=== PATIENT | male | born 1960 | race Caucasian/White ===

== ENCOUNTER → 2017-09-20 10:20 | Outpatient (POV) | payer MEDICARE, BC, SELFPAY | PROVIDERS: Family Provider Family Medicine; PCP Family Medicine; Visit Provider Nurse Practitioner Acute Care | DX: Z00.00 Encounter for general adult medical examination without abnormal findings (principal) ==

== ENCOUNTER → 2017-11-30 11:08 | Outpatient (CLI) | payer MEDICARE, BC, SELFPAY ==
--- NOTE | 2017-11-30 | XR_ITS ---
XR knee LT 3V HISTORY: ITS.REASON: LT KNEE PAIN ORDERING PHYSICIAN: Anton Betts MD PATIENT AGE: 57 years FINDINGS: There are moderate osteoarthritic changes of the medial compartment with mild osteoarthritis of the lateral compartment and patellofemoral joint. No fracture or dislocation. No lytic or blastic change. IMPRESSION: Moderate osteoarthritis of the left knee
--- NOTE | 2017-11-30 | XR_ITS ---
XR knee RT 3V HISTORY: Right knee pain ITS.REASON: RT KNEE PAIN ORDERING PHYSICIAN: Anton Betts MD PATIENT AGE: 57 years COMPARISON: FINDINGS: No fracture or dislocation. No lytic or blastic change. Normal mineralization. There is slight decrease in the joint space medially which may be due to mild osteoarthritic change. No other significant anomalies are evident. IMPRESSION: Mild osteoarthritic change medial compartment
== END ==
PROVIDERS: PCP Family Medicine; Visit Provider Family Medicine
DX: M25.561 Pain in right knee (principal); M25.562 Pain in left knee
CPT/HCPCS: 73562

== ENCOUNTER → 2017-12-23 11:54 | Outpatient (CLI) | payer MEDICARE, BC, SELFPAY ==
[2017-12-23 12:30] LABS: Basophils % 0.4 % (0.1-2.0); Eosinophils # 0.2 K/mm3 (0.0-0.4); Eosinophils % 2.4 % (0.1-12.0); Hematocrit 45.6 % (42.0-52.0); Hemoglobin 14.6 g/dL (14.1-18.0); Lymphocytes # 2.2 K/mm3 (0.7-4.5); Lymphocytes % 30.6 K/mm3 (10-50); Mean Corpuscular Hemoglobin 29.1 pg (27.0-31.2); Mean Corpuscular Volume 91.1 fl (80-94); Mean Platelet Volume 8.5 fl (7.4-10.4); Monocytes # 0.5 K/mm3 (0.1-1.0); Monocytes % 7.3 % (1.7-9.3); Neutrophils # 4.3 K/mm3 (1.8-7.8); Neutrophils % 59.3 % (37.0-80.0); Platelet Count 176 K/mm3 (142-424); Red Blood Count 5.01 M/mm3 (4.60-6.20); Red Cell Distribution Width 12.6 % (11.5-17.5); White Blood Count 7.3 K/mm3 (4.8-10.8)
[2017-12-23 13:21] LABS: Anion Gap 13.5 mEq/L (5-15); Blood Urea Nitrogen 17 mg/dL (7-18); Carbon Dioxide 27 mmol/L (21.0-32.0); Chloride 103 mmol/L (98-107); Estimated Glomerular Filt Rate 63 ml/min (>60); GFR (African American) 76 ML/MIN (>60); Glucose 100 mg/dL (74-106); Potassium 4.5 mmoL/L (3.5-5.1); Prostate Specific Ag, Diagnost 1.65 ng/mL (0.0-4.0); Sodium 139 mmol/L (136-145)
== END ==
PROVIDERS: Visit Provider Urology
DX: N40.1 Benign prostatic hyperplasia with lower urinary tract symptoms (principal); R39.89 Other symptoms and signs involving the genitourinary system
CPT/HCPCS: 36415; 80048; 84153; 85025

== ENCOUNTER → 2018-12-06 10:41 | Outpatient (CLI) | payer MEDICARE, BC, SELFPAY ==
--- NOTE | 2018-12-06 10:52 | XR_ITS ---
EXAM: XR lumbar spine min 4V HISTORY: ITS.REASON: RT SIDE LOW BACK PAIN ORDERING PHYSICIAN: Anton Betts MD PATIENT AGE: 58 years COMPARISON: None FINDINGS: Degenerative disc disease T10-T11 and T11-T12 T12-L1 and L1-L2 L2-L3. There is mild wedging of T12 and L1 which appears chronic. Normal alignment. Generalized vascular calcification. Facet arthritic change at all 5 S1. IMPRESSION: Degenerative changes, no acute finding
== END ==
PROVIDERS: PCP Family Medicine; Visit Provider Family Medicine
DX: M54.41 Lumbago with sciatica, right side (principal)
CPT/HCPCS: 72110

== ENCOUNTER → 2019-02-21 08:55 | Outpatient (CLI) | payer MEDICARE, OTHER, SELFPAY ==
--- NOTE | 2019-02-21 09:07 | MR_ITS ---
MR lumbar spine wo con, MR 3-d myelogram/MRCP HISTORY: PT states low back pain, RT leg numbness and falling. Symptoms X 8 months and keeps getting worse. ITS.REASON: ACUTE RIGHT-SIDED LOW BACK PAIN W/RIGHT-SIDED SCIATICA, DDD ORDERING PHYSICIAN: Anton Betts MD PATIENT AGE: 58 years Comparison: X-RAY 12/06/18 TECHNIQUE: Standard multiplanar multiecho sequences are performed without contrast. 3-D MIP and myelographic images are also rendered and reviewed FINDINGS: There is normal alignment. The spinal cord and is at the T12-L1 level. T11-T12: There is degenerative disc disease at this level with mild bulging disc along with moderate to severe facet and ligamentum flavum hypertrophic change. There is resultant canal stenosis with impingement upon the spinal cord compression of the cord. There is slight increased T2 signal of the cord at this level suggesting underlying gliotic change or edema. The canal measures 8 mm. There is bilateral severe foraminal and lateral recess narrowing. T12-L1: Degenerative disc disease with mild facet and ligamentum flavum hypertrophy T12-L1: Degenerative disc disease with mild bulging disc. L1-L2: Mild facet and ligamentum flavum hypertrophic change. L2-L3: Bulging disc with facet and ligamentum flavum hypertrophy. There is moderate left-sided foraminal narrowing and mild bilateral lateral recess narrowing. L3-L4: Bulging disc with facet and ligamentum flavum hypertrophy with moderate bilateral lateral recess and foraminal narrowing. L4-L5: Bulging disc eccentric toward the left lung with moderate facet and ligamentum flavum hypertrophy with moderate to severe bilateral foraminal narrowing greater on the left along with moderate left lateral recess narrowing and mild right lateral recess narrowing. Borderline canal stenosis at this level. L5-S1: Mild concentric bulging disc along with facet and ligamentum flavum hypertrophy with moderate to severe bilateral foraminal narrowing. No extruded herniated disc is evident. IMPRESSION: 1. Abnormal MRI of the lumbar spine with multilevel lumbar spondylosis with bulging disc, degenerative disc disease, facet and ligamentum flavum hypertrophy with varying degrees of lateral recess and foraminal narrowing. PLEASE SEE ABOVE FOR DETAILED DESCRIPTION AT EACH LEVEL. 2. At T11-T12, there is degenerative disc disease with bulging disc along with moderate to severe facet and ligamentum flavum hypertrophy with resultant canal stenosis and spinal cord impingement with some increased T2 signal of the cord at this level suggesting underlying gliotic change or edema. Severe bilateral lateral recess and foraminal narrowing is also present at this level.
== END ==
PROVIDERS: PCP Family Medicine; Visit Provider Family Medicine
DX: M54.41 Lumbago with sciatica, right side (principal); M51.36 Other intervertebral disc degeneration, lumbar region; M47.816 Spondylosis without myelopathy or radiculopathy, lumbar region
CPT/HCPCS: 72148; 76376

== ENCOUNTER → 2019-04-24 11:40 | Outpatient (POV) | payer MEDICARE, BC, SELFPAY ==
[2019-04-24 11:48] VITALS: BP 173/95; PULSE 81; RESP 18; O2SAT 98; BMI 28.2
--- NOTE | 2019-04-25 10:23 | HMH.PMCON ---
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 Category: Medical Code(s): M46.00 - Spinal enthesopathy, site unspecified (2) Spinal stenosis Current visit: Yes Status: Chronic Qualifiers: Neurogenic claudication status: with neurogenic claudication Category: Medical Code(s): M48.00 - Spinal stenosis, site unspecified (3) Degenerative disc disease Current visit: Yes Status: Chronic Qualifiers: Spinal region: lumbar Qualified Code(s): M51.36 - Other intervertebral disc degeneration, lumbar region Category: Medical - Assessment and plan all Dx Assessment and Plan for all problems:: We will plan an L4-L5 lumbar epidural steroid injection with half of the steroid due to the state of his kidney and I epidurogram for potential mild procedure. Patient's been instructed to call the office if he has any issues prior to his next appointment. He is not on any anticoagulation therapy. Patient is continuing a home stretching program. Dr. Vegas has reviewed this note and agrees with this plan of care. This note was dictated using voice recognition software and may contain errors or omissions HPI - Data of Consult Consult date: 04/24/19 Requesting Physician: Theresa Christina APRN Primary Care Provider: Anton Betts MD - Consult Narrative Reason for consult: Back pain, leg pain History of present illness: Mr. Regalado is a 59 year old male who presents today for consultation in regards to his low back pain leg pain. Patient rates his pain a 7 out of 10. Patient's pain is worse when he is standing and walking. Patient is unable to do so for long periods of time. Patient does have MRI showing ligamentum flavum hypertrophy and spinal stenosis. Patient and I discussed epidural injections. Due to the fact that he is only has one kidney we will potentially taper the steroids so that he does not have a full dose. We also briefly spoke about the mild procedure. CC: Theresa Christina APRN [facility] History I have reviewed the patient's past medical history: Yes Medical History: Reports:: Asthma, Gastroesophageal Reflux Disease(GERD), Hypertension, Lung Disease, Ulcer Denies:: Diabetes Mellitus Type 1, Diabetes Mellitus Type 2, Internal Pacemaker, Seizures *Have you ever received a pneumonia vaccine?: Yes *Have you received a flu vaccine this season?: Yes Other Medical History: Reports: Arthritis Other Surgeries: Yes: Other (donated left kidney). No: Pacemaker Amputation: No Fractures: No - *Social History Smoking Status: Current every day smoker Tobacco Type: cigarettes # Packs/Day (cigarettes): 2 Alcohol Intake: current Alcohol Intake Frequency:: a few times a week Substance Use Type: denies use *Occupational Status:: other Housing: house Household Members: other *Travel in the last 8 weeks: None Family Hx:: No significant family history Review of Systems - Review of Systems ROS General: no recent weight change, no fever, no sleep disturbances Respiratory: no cough, no shortness of air, no recurring pulmonary infections Cardiovascular/Peripheral Vascular: No chest pain, No palpitations, no edema, no shortness of breath. Gastrointestinal: no incontinence, normal bowel movements reported Genitourinary: no incontinence Musculoskeletal: Back pain, leg pain Psychiatric: normal mood/ affect Neurological: [denies weakness in extremities], [denies balance issues] Meds Home Medications Medication Instructions Recorded Confirmed Type Albuterol Sulfate [Albuterol HFA 1 - 2 puffs IH Q4-6H PRN 11/02/17 07/21/18 History Inhaler] Tamsulosin HCl [Flomax] 0.4 mg PO DAILY 11/02/17 07/21/18 History albuterol sulfate HFA 90 2 puff INHALATION Q6H PRN 12/23/17 07/21/18 History mcg/actuation aerosol inhaler aspirin 81 mg tablet,delayed 81 mg PO ONCE 12/23/17 07/21/18 History release cholecalciferol (vitamin D3) 1,000 1,00
--- NOTE | 2019-04-25 10:29 | P.CONS_ITS ---
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 Category: Medical Code(s): M46.00 - Spinal enthesopathy, site unspecified (2) Spinal stenosis Current visit: Yes Status: Chronic Qualifiers: Neurogenic claudication status: with neurogenic claudication Category: Medical Code(s): M48.00 - Spinal stenosis, site unspecified (3) Degenerative disc disease Current visit: Yes Status: Chronic Qualifiers: Spinal region: lumbar Qualified Code(s): M51.36 - Other intervertebral disc degeneration, lumbar region Category: Medical - Assessment and plan all Dx Assessment and Plan for all problems:: We will plan an L4-L5 lumbar epidural steroid injection with half of the steroid due to the state of his kidney and I epidurogram for potential mild procedure. Patient's been instructed to call the office if he has any issues prior to his next appointment. He is not on any anticoagulation therapy. Patient is continuing a home stretching program. Dr. Vegas has reviewed this note and agrees with this plan of care. This note was dictated using voice recognition software and may contain errors or omissions HPI - Data of Consult Consult date: 04/24/19 Requesting Physician: Theresa Christina APRN Primary Care Provider: Anton Betts MD - Consult Narrative Reason for consult: Back pain, leg pain History of present illness: Mr. Regalado is a 59 year old male who presents today for consultation in regards to his low back pain leg pain. Patient rates his pain a 7 out of 10. Patient's pain is worse when he is standing and walking. Patient is unable to do so for long periods of time. Patient does have MRI showing ligamentum flavum hypertrophy and spinal stenosis. Patient and I discussed epidural injections. Due to the fact that he is only has one kidney we will potentially taper the steroids so that he does not have a full dose. We also briefly spoke about the mild procedure. CC: Theresa Christina APRN [facility] History I have reviewed the patient's past medical history: Yes Medical History: Reports:: Asthma, Gastroesophageal Reflux Disease(GERD), Hypertension, Lung Disease, Ulcer Denies:: Diabetes Mellitus Type 1, Diabetes Mellitus Type 2, Internal Pacemaker, Seizures *Have you ever received a pneumonia vaccine?: Yes *Have you received a flu vaccine this season?: Yes Other Medical History: Reports: Arthritis Other Surgeries: Yes: Other (donated left kidney). No: Pacemaker Amputation: No Fractures: No - *Social History Smoking Status: Current every day smoker Tobacco Type: cigarettes # Packs/Day (cigarettes): 2 Alcohol Intake: current Alcohol Intake Frequency:: a few times a week Substance Use Type: denies use *Occupational Status:: other Housing: house Household Members: other *Travel in the last 8 weeks: None Family Hx:: No significant family history Review of Systems - Review of Systems ROS General: no recent weight change, no fever, no sleep disturbances Respiratory: no cough, no shortness of air, no recurring pulmonary infections Cardiovascular/Peripheral Vascular: No chest pain, No palpitations, no edema, no shortness of breath. Gastrointestinal: no incontinence, normal bowel movements reported Genitourinary: no incontinence Musculoskeletal: Back pain, leg pain Psychiatric: normal mood/ affect Neurological: [denies weakness in extremities], [denies balance issues] Meds Home Medications
== END ==
PROVIDERS: PCP Family Medicine; Visit Provider Clinical Nurse Specialist Family Health
DX: M46.00 Spinal enthesopathy, site unspecified (principal); M48.00 Spinal stenosis, site unspecified; M51.36 Other intervertebral disc degeneration, lumbar region
CPT/HCPCS: 99202

== ENCOUNTER → 2019-06-05 10:39 | Outpatient (POV) | payer MEDICARE, OTHER, SELFPAY ==
[2019-06-05 11:04] VITALS: BP 155/93; PULSE 75; RESP 18; O2SAT 98; BMI 31.7
--- NOTE | 2019-06-05 12:38 | HMH.PAINSOAP ---
[facility] Pain Management SOAP Note Subjective:: Patient is a pleasant 59-year-old white male who presents today for follow-up after epidural steroid injection. Patient states that did not help patient states that he does not like taking his gabapentin due to side effects he states he is groggy. He is asking for Vicodin today. I discussed with him that that is not the treatment for degenerative changes and bulging disc. We discussed switching to Lyrica. Patient has one kidney so we are limited on anti-inflammatory options. Patient states that most of his pain is in his low back it is worsened with twisting. He does have a positive Kemps test and a positive facet loading lumbar spine bilaterally. Patient's MRI does show facet hypertrophy, facet arthropathy and spondylosis. Patient and I discussed a medial branch block in great detail I also provided him with information in regards to it patient is understanding that it is diagnostic in nature. He may be a neurotomy candidate. He is continuing a home stretching program. He is unable to take anti-inflammatories due to his renal function. ROS General: no recent weight change, no fever, no sleep disturbances Respiratory: no cough, no shortness of air, no recurring pulmonary infections Cardiovascular/Peripheral Vascular: No chest pain, No palpitations, no edema, no shortness of breath. Gastrointestinal: no new onset incontinence, normal bowel movements reported Genitourinary: no new onset incontinence Musculoskeletal: Back pain Psychiatric: normal mood/ affect Neurological: [denies new onset weakness in extremities], [denies new onset balance issues] Objective:: Physical Exam General: Alert and oriented x3, no acute distress, pleasant and cooperative, [on room air] Lungs: Resps E/U, Symmetrical chest expansion, Eyes: PERRL Musculoskeletal: Flexion and extension of lumbar spine somewhat guarded secondary to pain, deep tendon reflexes normal, strength in upper and lower extremities [5/5], [abnormal gait noted] Neurological: speech clear, [facility] equal, no gross sensory deficits Assessment:: Degenerative disc disease lumbar spine with facet arthropathy, lumbar spondylosis Plan:: We will plan an L3-L4 L4-L5 L5-S1 bilateral medial branch block. We will also start him on Lyrica 75 mg 1 p.o. twice daily. I will follow-up with the patient after his injection reassess his symptoms again I gave him printed out information in regards to his injection. He understands that its diagnostic in nature. I answered all of his questions. He is not on any anticoagulation therapy nor does he have any active infections. Dr. Vegas has reviewed this note and agrees with this plan of care. This note was dictated using voice recognition software and may contain errors or omissions [facility] History I have reviewed the patient's past medical history: Yes Medical History: Reports:: Asthma, Gastroesophageal Reflux Disease(GERD), Hypertension, Lung Disease, Ulcer Denies:: Cancer, Diabetes Mellitus Type 1, Diabetes Mellitus Type 2, Internal Pacemaker, MRSA, Seizures *Have you ever received a pneumonia vaccine?: Yes *Have you received a flu vaccine this season?: Yes Other Medical History: Reports: Arthritis Other Surgeries: Yes: Other (donated left kidney). No: Pacemaker Amputation: No Fractures: No - *Social History Smoking Status: Current every day smoker Tobacco Type: cigarettes # Packs/Day (cigarettes): 2 Alcohol Intake: current Alcohol Intake Frequency:: 0-2 drinks per day Substance Use Type: denies use *Occupational Status:: other Housing: house Household Members: other *Travel in the last 8 weeks: None Family Hx:: No significant family history
--- NOTE | 2019-06-05 12:41 | P.CONS_ITS ---
[facility] Pain Management SOAP Note Subjective:: Patient is a pleasant 59-year-old white male who presents today for follow-up after epidural steroid injection. Patient states that did not help patient states that he does not like taking his gabapentin due to side effects he states he is groggy. He is asking for Vicodin today. I discussed with him that that is not the treatment for degenerative changes and bulging disc. We discussed switching to Lyrica. Patient has one kidney so we are limited on anti- inflammatory options. Patient states that most of his pain is in his low back it is worsened with twisting. He does have a positive Kemps test and a positive facet loading lumbar spine bilaterally. Patient's MRI does show facet hypertro phy, facet arthropathy and spondylosis. Patient and I discussed a medial branch block in great detail I also provided him with information in regards to it patient is understanding that it is diagnostic in nature. He may be a neurotomy candidate. He is continuing a home stretching program. He is unable to take anti-inflammatories due to his renal function. ROS General: no recent weight change, no fever, no sleep disturbances Respiratory: no cough, no shortness of air, no recurring pulmonary infections Cardiovascular/Peripheral Vascular: No chest pain, No palpitations, no edema, no shortness of breath. Gastrointestinal: no new onset incontinence, normal bowel movements reported Genitourinary: no new onset incontinence Musculoskeletal: Back pain Psychiatric: normal mood/ affect Neurological: [denies new onset weakness in extremities], [denies new onset balance issues] Objective:: Physical Exam General: Alert and oriented x3, no acute distress, pleasant and cooperative, [on room air] Lungs: Resps E/U, Symmetrical chest expansion, Eyes: PERRL Musculoskeletal: Flexion and extension of lumbar spine somewhat guarded secondary to pain, deep tendon reflexes normal, strength in upper and lower extremities [5/5], [abnormal gait noted] Neurological: speech clear, director of recreation therapy equal, no gross sensory deficits Assessment:: Degenerative disc disease lumbar spine with facet arthropathy, lumbar spondylosis Plan:: We will plan an L3-L4 L4-L5 L5-S1 bilateral medial branch block. We will also start him on Lyrica 75 mg 1 p.o. twice daily. I will follow-up with the patient after his injection reassess his symptoms again I gave him printed out information in regards to his injection. He understands that its diagnostic in nature. I answered all of his questions. He is not on any anticoagulation therapy nor does he have any active infections. Dr. Vegas has reviewed this note and agrees with this plan of care. This note was dictated using voice recognition software and may contain errors or omissions [facility] History I have reviewed the patient's past medical history: Yes Medical History: Reports:: Asthma, Gastroesophageal Reflux Disease(GERD), Hypertension, Lung Disease, Ulcer Denies:: Cancer, Diabetes Mellitus Type 1, Diabetes Mellitus Type 2, Internal Pacemaker, MRSA, Seizures *Have you ever received a pneumonia vaccine?: Yes *Have you received a flu vaccine this season?: Yes Other Medical History: Reports: Arthritis Other Surgeries: Yes: Other (donated left kidney). No: Pacemaker Amputation: No Fractures: No - *Social History Smoking Status: Current every day smoker Tobacco Type: cigarettes # Packs/Day (cigarettes): 2 Alcohol Intake: current Alcohol Intake Frequency:: 0-2 drinks per day Substance Use Type: denies use *Occupational Status:: other Housing: [facility]
== END ==
PROVIDERS: PCP Family Medicine; Visit Provider Clinical Nurse Specialist Family Health
DX: M51.36 Other intervertebral disc degeneration, lumbar region (principal); M47.816 Spondylosis without myelopathy or radiculopathy, lumbar region; M54.06 Panniculitis affecting regions of neck and back, lumbar region
CPT/HCPCS: 99212

== ENCOUNTER → 2019-06-27 11:36 | Outpatient (CLI) | payer MEDICARE, OTHER, SELFPAY ==
--- NOTE | 2019-06-27 11:43 | XR_ITS ---
PROCEDURE: XR SHOULDER RT MIN 2V CLINICAL INDICATION: RT SHOULDER PAIN COMPARISON: No exams were available for comparison FINDINGS: No fracture or dislocation. No lytic or blastic change. There is some minimal cortical regularity of the humeral head suggesting mild degenerative changes. There is mild subacromial stenosis IMPRESSION: Mild subacromial stenosis and mild degenerative change of the humeral head. These findings may be seen with rotator cuff disease. MRI may provide further evaluation if clinically desired. Dictated by: Kratik Kim MD 06/27/2019 16:02 Electronically signed by Kartik Kim MD in [place] 06/27/2019 16:02
== END ==
PROVIDERS: PCP Family Medicine; Visit Provider Clinical Nurse Specialist Family Health
DX: M25.511 Pain in right shoulder (principal)
CPT/HCPCS: 73030

== ENCOUNTER → 2019-07-31 09:55 | Outpatient (POV) | payer MEDICARE, SELFPAY ==
[2019-07-31 10:09] VITALS: BP 136/79; PULSE 75; RESP 18; O2SAT 99; BMI 31.7
--- NOTE | 2019-07-31 11:27 | HMH.PAINSOAP ---
[facility] Pain Management SOAP Note Subjective:: Patient is a pleasant 59-year-old white male who presents today for follow-up after medial branch block. Patient states that he did not get any relief of his symptomology. He states that his symptoms are getting worse and worse his low back pain and is burning and tingling in his bilateral legs. He is also having some weakness in his legs. Patient and I discussed a neurostimulator along with an intrathecal pain pump he is uninterested in this at this time. Patient and I discussed other options which included neurosurgical evaluation. He is interested in pursuing this. He rates his pain today a 4 out of 10 mostly low back and bilateral legs. ROS General: no recent weight change, no fever, no sleep disturbances Respiratory: no cough, no shortness of air, no recurring pulmonary infections Cardiovascular/Peripheral Vascular: No chest pain, No palpitations, no edema, no shortness of breath. Gastrointestinal: no new onset incontinence, normal bowel movements reported Genitourinary: no new onset incontinence Musculoskeletal: Back pain, leg pain Psychiatric: normal mood/ affect Neurological: [denies new onset weakness in extremities], [denies new onset balance issues] Objective:: Physical Exam General: Alert and oriented x3, no acute distress, pleasant and cooperative, [on room air] Lungs: Resps E/U, Symmetrical chest expansion, Eyes: PERRL Musculoskeletal: Flexion and extension of lumbar spine somewhat guarded secondary to pain, deep tendon reflexes normal, strength in upper and lower extremities [5/5], [abnormal gait noted] Neurological: speech clear, practice performance manager equal, no gross sensory deficits Assessment:: Degenerative disc disease lumbar spine with lumbar spondylosis and facet arthropathy lumbar spine Plan:: We will schedule the patient with Dr. Palacios for neurosurgical consultation. I did give him information in regards to neurostimulator. I will follow-up with this patient on an as-needed basis. He has been instructed to call the office if he has any issues. Dr. Vegas has reviewed this note and agrees with this plan of care. This note was dictated using voice recognition software and may contain errors or omissions [facility] History I have reviewed the patient's past medical history: Yes Medical History: Reports:: Asthma, Gastroesophageal Reflux Disease(GERD), Hypertension, Lung Disease, Ulcer Denies:: Cancer, Diabetes Mellitus Type 1, Diabetes Mellitus Type 2, Internal Pacemaker, MRSA, Seizures *Have you ever received a pneumonia vaccine?: Yes *Have you received a flu vaccine this season?: Yes Other Medical History: Reports: Arthritis Other Surgeries: Yes: Other (donated left kidney). No: Pacemaker Amputation: No Fractures: No - *Social History Smoking Status: Current every day smoker Tobacco Type: cigarettes # Packs/Day (cigarettes): 2 Alcohol Intake: current Alcohol Intake Frequency:: 0-2 drinks per day Substance Use Type: denies use *Occupational Status:: other Housing: house Household Members: other *Travel in the last 8 weeks: None Family Hx:: No significant family history
== END ==
PROVIDERS: PCP Family Medicine; Visit Provider Clinical Nurse Specialist Family Health
DX: M51.36 Other intervertebral disc degeneration, lumbar region (principal); M47.816 Spondylosis without myelopathy or radiculopathy, lumbar region; M54.06 Panniculitis affecting regions of neck and back, lumbar region
CPT/HCPCS: 99212

== ENCOUNTER → 2020-04-17 13:42 | Outpatient (CLI) | payer MEDICARE, SELFPAY ==
--- NOTE | 2020-04-17 13:48 | MR_ITS ---
PROCEDURE: MR THORACIC SPINE WO CON CLINICAL INDICATION: WEAKNESS OF BOTH LEGS, PARESTHESIAS MID BACK PAIN AND RT SIDED LBP X 3 YEARS. pT DENIES TRAUMA OR INJURY. COMPARISON: CT CHW CT CHEST W/ CONTRAST from 10/30/2016 MR MR LUMBAR SPINE WO CON from 04/18/2020 TECHNIQUE: Routine multiplanar multi echo sequences are performed without gadolinium enhancement. FINDINGS: There is normal alignment. There is mild multilevel thoracic spondylosis. No acute fracture or dislocation is evident. There is some heterogeneous signal intensity throughout most prominent at T7-T8 T9 T10 and T11. Mild degenerative disc disease in the upper thoracic spine. T6-T7: Degenerate disc disease with minimal left paracentral disc protrusion and facet hypertrophy with mild left foraminal narrowing. T7-T8: Degenerative disc disease. Type 1 endplate changes anteriorly. T8-T9: Degenerate disc disease with bulging disc and facet hypertrophic change with type 1 endplate changes T9-T10: Degenerative disc disease with bulging disc with mild type 1 endplate changes anteriorly T10-T11: Degenerative disc disease with bulging disc. There is bulging disc with canal stenosis along with bilateral foraminal narrowing which is severe in nature. Type 1 endplate changes are present posteriorly. There is increased T2 signal present in the cord at T11 which could be related underlying gliotic changes T11-T12: Degenerative disc disease with bulging disc with facet ligamentum hypertrophy with canal stenosis and severe bilateral foraminal narrowing. There is some flattening of the cord anteriorly as well as posteriorly on both sides from the canal stenosis/bulging disc and facet and ligamentum hypertrophic change. There is increased T2 signal involving the cord at T12 which could be due to gliotic change. T12-L1: Degenerate disc disease with bulging disc. IMPRESSION: Abnormal MRI of the thoracic spine with multilevel thoracic spondylosis with degenerative disc disease, bulging disc, facet and ligamentum hypertrophy with canal stenosis and lateral recess and foraminal narrowing. Please see above for detailed description at each level. Small areas of increased T2 signal involve the spinal cord at T10-T11 and T12 area which may be due to gliotic changes. Abnormal signal intensity of the vertebra from T7 to T11 consistent with type 1 endplate changes and bone marrow edema Dictated by: Kartik Kim MD 04/19/2020 14:11 Kartik Kim MD in [place] 04/19/2020 14:11
== END ==
PROVIDERS: PCP Family Medicine; Visit Provider Orthopaedic Surgery Orthopaedic Surgery of the Spine
DX: M51.04 Intervertebral disc disorders with myelopathy, thoracic region (principal); R53.1 Weakness
CPT/HCPCS: 72146

== ENCOUNTER → 2020-04-18 08:47 | Outpatient (CLI) | payer MEDICARE, SELFPAY ==
--- NOTE | 2020-04-18 08:51 | MR_ITS ---
PROCEDURE: MR LUMBAR SPINE WO CON CLINICAL INDICATION: WEAKNESS BOTH LEGS, MYELOPATHY THORACIC REGION PT C/O BILATERAL LOWER EXTREMITY PAIN NUMBNESS AND TINGLING X YEARS THAT MANCIA GOTTEN WORSE. PT C/O RT FOOT DROP AND STATES PAIN IS WORSE ON THE RT. MR MR CERVICAL SPINE WO CON from 04/18/2020 TECHNIQUE: Standard multiplanar multiecho sequences are performed without contrast. 3-D MIP and myelographic images are also rendered and reviewed FINDINGS: There is normal alignment. The spinal cord ends at the L1 level. There is multilevel lumbar spondylosis. Please see thoracic spine MRI report for thoracic spine findings include in the canal stenosis at T11-T12 with abnormal increased T2 signal at the T12 region of the cord. T12-L1: Degenerate disc disease with bulging disc. L1-L2: Anterior osteophytes. L2-L3: Mild bulging disc with severe facet and ligamentum hypertrophy with mild left lateral recess and foraminal narrowing L3-L4: Bulging disc with mild facet ligamentum hypertrophy with mild bilateral lateral recess and foraminal narrowing. There is a small annular fissure L4-5: Bulging disc slightly eccentric toward the left with a small broad-based central disc protrusion. There is also left foraminal and lateral disc protrusion. This appears somewhat greater than when compared to the previous exam. There is bilateral lateral recess and foraminal narrowing greater on the left. There is narrowing of the canal at this level L5-S1: Mild bulging disc slightly eccentric toward the left with bilateral lateral recess and foraminal narrowing which may be slightly greater on the left compared to the previous exam. No extruded herniated disc IMPRESSION: Abnormal MRI of the lumbar spine with multilevel lumbar spondylosis. Please see above for detailed description at each level. No extruded herniated disc Dictated by: Kartik Kim MD 04/20/2020 09:13 Kartik Kim MD in [place] 04/20/2020 09:13
--- NOTE | 2020-04-18 08:51 | MR_ITS ---
PROCEDURE: MR CERVICAL SPINE WO CON CLINICAL INDICATION: WEAKNESS BOTH LEGS, MYELOPATHY THORACIC REGION PT C/O HEADACHES WITH BILATERAL NECK PAIN WITH NUMBNESS AND TINGLING X YEARS. PT DENIES TRAUMA OR INJURY. COMPARISON: No exams were available for comparison TECHNIQUE: Standard multiplanar multiecho sequences are performed without contrast. 3-D MIP and myelographic images are also rendered and reviewed FINDINGS: Motion artifact obscures fine detail. There is slight reversal cervical lordosis which may be due to patient positioning or muscle spasm. There is normal alignment. The craniocervical junction has an unremarkable appearance. C2-C3: Mild left foraminal narrowing from uncovertebral hypertrophy. C3-C4: Mild degenerative disc disease. There is right-sided foraminal narrowing from uncovertebral hypertrophy with canal stenosis at 9 mm. C4-C5: Degenerative disc disease with mild bulging disc with canal stenosis of 8 mm.. There is mild impingement upon the anterior aspect of the cord with mild flattening of the cord along with bilateral lateral recess and foraminal narrowing. C5-C6: Degenerate disc disease with canal stenosis of 8 mm with bulging disc with bilateral lateral recess and foraminal narrowing. There is mild impingement upon the cord anteriorly with mild flattening of the cord. C6-C7: Degenerative disc disease with bulging disc with canal stenosis of 8 mm with mild bilateral lateral recess and foraminal narrowing. C7-T1: Unremarkable. IMPRESSION: Multilevel cervical spondylosis with bulging discs, canal stenosis and lateral recess and foraminal narrowing. Please see above for detailed description at each level. Dictated by: Kartik Kim MD 04/20/2020 08:52 Kartik Kim MD in [place] 04/20/2020 08:52
== END ==
PROVIDERS: PCP Family Medicine; Visit Provider Orthopaedic Surgery Orthopaedic Surgery of the Spine
DX: M62.81 Muscle weakness (generalized) (principal); G95.89 Other specified diseases of spinal cord
CPT/HCPCS: 72141; 72148; 76376

== ENCOUNTER → 2020-04-24 12:55 | Outpatient (CLI) | payer MEDICARE, SELFPAY ==
--- NOTE | 2020-04-24 13:00 | CT_ITS ---
PROCEDURE: CT LUNG SCREENING CLINICAL INDICATION: HX OF TOBACCO USE Current smoker 60 pack year smoking history COMPARISON: CT CHW CT CHEST W/ CONTRAST from 10/30/2016 MR MR LUMBAR SPINE WO CON from 04/18/2020 TECHNIQUE: The exam was performed on a GE Light Speed [address] scanner using 2.90 mGy CTDI. A low dose helical CT CHEST was performed on a multi-detector scanner. All CT scans at the facility use one or more dose reduction, viz: automated exposure control, ma/kV adjustment per patient size (including targeted exams where dose is matched to indication, i.e. head), or iterative reconstruction technique. The LDCT was performed in a facility that meets the criteria for the screening program. Data regarding this exam was submitted to ACR which is an approved registry. The order for this exam indicates that it came as a result of a lung cancer screening counseling shard decision-making visit that included all the elements required of such a visit including smoking cessation. The radiologist interpreting this exam meets the CMS criteria for the LDCT lung cancer screening program. The exam is reported using the Lung-RADS classification scale and reported to the ACR registry. NOTE: This study was performed for the specific purposes of lung cancer screening and is not an alternative to diagnostic chest CT. RADIATION DOSE: CTDI vol(CT dose Index-volume) = 2.90mG DLP (Dose Length Product) = 124.41 mGcm FINDINGS: COPD changes with a few scattered areas of scarring. No suspicious nodules effusions or infiltrates. OTHER FINDINGS: Coronary artery calcifications. The left kidney is not visualized in its normal location. IMPRESSION: Lung-RADS Category 1 Negative Follow-up: Continue annual screening with LDCT in 12 months Dictated by: Kartik Kim MD 05/03/2020 11:39 Kartik Kim MD in [place] 05/03/2020 11:39
[2020-04-24 13:30] VITALS: PULSE 85; PULSE 90
== END ==
PROVIDERS: PCP Family Medicine; Visit Provider Internal Medicine Pulmonary Disease
DX: Z87.891 Personal history of nicotine dependence (principal); Z12.2 Encounter for screening for malignant neoplasm of respiratory organs
CPT/HCPCS: 94060; 94640; 94726; 94729

== ENCOUNTER → 2020-06-08 10:44 | Outpatient (CLI) | payer MEDICARE, SELFPAY ==
--- NOTE | 2020-06-08 11:07 | XR_ITS ---
PROCEDURE: XR CHEST 2V Referring Doctor: Anton Betts Patient Age:60Y smoker CLINICAL HISTORY: COUGH Persistent cough four weeks smoker COMPARISON: CR CXR CHEST(2 VIEWS-NOT PORTABLE) from 05/20/2016 CR CXR CHEST(2 VIEWS-NOT PORTABLE) from 10/10/[address] CHEST W/ CONTRAST from 10/30/[address] LUNG SCREENING from 04/24/2020 FINDINGS: PA and lateral chest performed today 2 PA and 2 lateral views obtained today are compared to previous studies from 2015 2016-as well as is recent1 CT screening chest from March 2020 Lungs appear clear with nothing definitely acute. No focal infiltrate but no pneumothorax but no pleural effusion.. Mild hyperexpansion with slight flattening the diaphragm the lateral view noted a Heart, normal size with normal pulmonary vascularity. Right ambika is slightly generous/upper normal and appears stable since 2017 in 2015. Lateral view appear stable.. The chest wall T-spine appear stable with mild anterior marginal osteophytes mild degenerative changes T-spine IMPRESSION: . Stable chest Nothing definitely acute ... Mild hyperexpansion ... Dictated by: Brayan Alvarenga MD 06/09/2020 00:03 Brayan Alvarenga MD in [place] 06/09/2020 00:03
[2020-06-08 12:51] LABS: Coronavirus 19 IgG Antibody Negative (Negative); Coronavirus 19 IgM Antibody Negative (Negative)
== END ==
PROVIDERS: PCP Family Medicine; Referring Provider Family Medicine; Visit Provider Internal Medicine Gastroenterology
DX: Z01.818 Encounter for other preprocedural examination (principal); Z13.810 Encounter for screening for upper gastrointestinal disorder; R05 Cough
CPT/HCPCS: 36415; 71046; 86328

== ENCOUNTER 2020-06-10 10:08 | Day surgery (SDC) | payer MEDICARE, SELFPAY ==
[2020-06-04 14:02] VITALS: BMI 32.0
[2020-06-10 10:22] VITALS: BP 153/97; PULSE 76; RESP 18; TEMP 36.4; O2SAT 99
[2020-06-10 11:13] VITALS: O2SAT 97
--- NOTE | 2020-06-10 11:19 | HMH.ANESCL ---
[facility] Anesthesia Checklist - Patient Identification Patient Identification: Arm Band, Verbal (Name & ) - Structural Data Admitted From: Home Planned Operative Procedure/s: EGD Consent for Planned Operative Procedure(s) Verified: Yes Verified Documents: Surgical Consent, History and Physical - NPO Status Verified Time NPO: 06:00 (coffee) - Chart Verification Results Verified: None - Additional verifications Anesthesia Reactions: No - Airway Assessment C-Spine Mobility Assessed: Yes TMJ Mobility Assessed: Yes Dentition: Good Dentition - Neurological Assessment Level of Consciousness: Awake, Alert, Appropriate, Follows Commands Hx Seizures: No Numbness or tingling in extremities: Yes - Anesthesia Plan Anesthesia Risk discussed: Yes Anesthesia Plan: Verified ASA Class: III Anesthesia Type: MAC [facility] History I have reviewed the patient's past medical history: Yes Medical History: Reports:: Chronic Obstructive Pulmonary Disease (COPD), Deep Vein Thrombosis, Gastroesophageal Reflux Disease(GERD), Hypertension, Lung Disease, Ulcer Denies:: Cancer, Diabetes Mellitus Type 1, Diabetes Mellitus Type 2, Internal Pacemaker, MRSA, Seizures *Have you ever received a pneumonia vaccine?: Yes *Have you received a flu vaccine this season?: Yes Other Medical History: Reports: Arthritis Comment:: WAYNE, Lupus, donated kidney, obesity Anesthesia experience/problems:: None Other Surgeries: Yes: Other (donated left kidney, TURP). No: Pacemaker Amputation: No Fractures: No - *Social History Last grade of school completed: GED Smoking Status: Current every day smoker Tobacco Type: cigarettes # Packs/Day (cigarettes): 1 Alcohol Intake: current Alcohol Intake Frequency:: a few times a month Substance Use Type: denies use *Occupational Status:: unemployed Housing: house Household Members: children *Travel in the last 8 weeks: None Family Hx:: No significant family history
[2020-06-10 11:38] VITALS: BP 92/63; PULSE 74; RESP 12; TEMP 36.5; O2SAT 95
--- NOTE | 2020-06-10 11:38 | P.PCN_ITS ---
[facility] Procedure Note Procedure Note:: Upper Endoscopy Procedure Report: Esophagogastroduodenoscopy with cold biopsies and TTS balloon dilation Endoscopost: Shane Macedo II, MD Referring Physician: Anton Betts MD Date of Procedure: June 10, 2020 Equipment: Olympus GIF 180 standard upper endoscope Sedation: MAC sedation Indications: Mr. Regalado is a 60-year-old gentleman with chronic globus sensation. He has had a history of reflux and dyspepsia in the past but presently reports no abdominal pain. He does get esophageal chest pain and pressure that is alleviated with belching. He has heartburn, bloating and nausea. He reports regular bowel function. The patient does take Gas-X and Esomeprazole. He is also on a probiotic. He did have an upper endoscopy with me in June 2017 with esophageal dilation. At that time he did have some cricopharyngeal spasm. Procedure: Prior to the procedure, a history and physical exam was performed, and patient's medications and allergies were reviewed. The risks, benefits and alternatives of the sedation and procedure were discussed with the patient. All questions were answered and informed consent was obtained. The patient was brought to the procedure room. Patient identification and proposed procedure were verified by the physician and the nurse. The patient was placed in a left lateral decubitus position and the scope was passed under direct vision. Throughout the procedure, the patient's blood pressure, pulse, and oxygen saturations were monitored continuously. The upper GI endoscopy was accomplished without difficulty. The patient tolerated the procedure well. Findings: The scope was passed directly into the upper esophagus and advanced to the third portion of the duodenum. The post bulbar duodenum and duodenal bulb were normal with normal mucosa and conniventes. The scope was withdrawn through a normal duodenal bulb and pylorus into the stomach. There was evidence of bile reflux with linear reactive gastropathy of the antrum. There was very mild chronic gastritis of the body and fundus of the stomach. The remainder of the antrum, body and fundus of the stomach were grossly normal. Upon retroflexion there was a very small sliding 1 to 2 cm hiatal hernia. 2 biopsies were taken in the antrum and along the lesser curvature for histology to rule out gastritis and/or H pylori. The scope was then withdrawn into the esophagus. There was a serrated Z-line. Cold biopsies were obtained at the GE junction. There was no evidence of reflux esophagitis or Juares's. There was no Schatzki's ring. There were strong tertiary contractions and evidence of moderate esophageal dysmotility. The entire esophagus was dilated to 60 Croatian/20 mm with a TTS hydrostatic balloon. There was some resistance at the cricopharyngeus. The remainder of the esophageal mucosa was normal. Impression: 1. Cricopharyngeal spasm status post dilation to 20 mm 2. Nonerosive GERD with moderate esophageal dysmotility and very small sliding 1 to 2 cm hiatal hernia 3. Bile reflux with linear reactive gastropathy Plan: I will follow-up the biopsies. We will discuss additional treatment options including Iberogast or promotility therapy. I would recommend sucrose C 13 breath testing as well.
[2020-06-10 11:48] VITALS: BP 117/76; PULSE 80; RESP 16; O2SAT 98
[2020-06-10 11:58] VITALS: BP 156/95; PULSE 76; RESP 16; O2SAT 98
[2020-06-10 12:08] VITALS: BP 144/96; PULSE 80; RESP 16; TEMP 36.5; O2SAT 96
== END 2020-06-10 12:21 | disposition home or self-care (01) ==
LOC: OUTP 10:09
PROVIDERS: PCP Family Medicine; Visit Provider Internal Medicine Gastroenterology
PROC: 0DJ08ZZ Inspection of Upper Intestinal Tract, Via Natural or Artificial Opening Endoscopic (ICD-10-PCS; CPT 43235; principal; 2020-06-10 13:00)
DX: J39.2 Other diseases of pharynx (principal); K21.9 Gastro-esophageal reflux disease without esophagitis; K22.4 Dyskinesia of esophagus; K44.9 Diaphragmatic hernia without obstruction or gangrene; K31.9 Disease of stomach and duodenum, unspecified; J44.9 Chronic obstructive pulmonary disease, unspecified; I10 Essential (primary) hypertension; Z86.718 Personal history of other venous thrombosis and embolism; Z88.8 Allergy status to other drugs, medicaments and biological substances; Z79.82 Long term (current) use of aspirin; Z79.899 Other long term (current) drug therapy
CPT/HCPCS: 43239; 43249; 88305; C1726

== ENCOUNTER → 2020-10-01 12:31 | Outpatient (CLI) | payer MEDICARE, SELFPAY ==
--- NOTE | 2020-10-01 12:39 | XR_ITS ---
PROCEDURE: XR CHEST 2V CLINICAL HISTORY: HTN COMPARISON: CR CXR CHEST(2 VIEWS-NOT PORTABLE) from 05/20/2016 CR CXR CHEST(2 VIEWS-NOT PORTABLE) from 10/10/[address] CHEST W/ CONTRAST from 10/30/2016 CR XR CHEST 2V from 06/08/2020 FINDINGS: The lung naidu are somewhat hyperinflated with flattening of the hemidiaphragms. There is no infiltrate. Cardiac size is normal and vascularity is normal and there is no pleural fluid. Mild degenerate changes midthoracic spine. IMPRESSION: Mild COPD, no acute chest pathology noted Dictated by: Dr. Colin Lopez MD 10/01/2020 13:29 Dr. Colin Lopez MD in [place] 10/01/2020 13:29
[2020-10-01 13:39] LABS: Basophils # 0.1 K/mm3 (0-0.2); Basophils % 0.8 % (0.1-2.0); Eosinophils # 0.3 K/mm3 (0.0-0.4); Eosinophils % 2.8 % (0.1-12.0); Hematocrit 48.7 % (42.0-52.0); Hemoglobin 15.7 g/dL (14.1-18.0); Lymphocytes % 29.8 % (10-50); Mean Corpuscular HGB Conc 32.3 g/dL (31.8-35.4); Mean Corpuscular Hemoglobin 30.9 pg (27.0-31.2); Mean Corpuscular Volume 95.8 fl (80-94); Mean Platelet Volume 8.6 fl (7.4-10.4); Monocytes # 0.6 K/mm3 (0.1-1.0); Monocytes % 5.6 % (1.7-9.3); Platelet Count 209 K/mm3 (142-424); Red Blood Count 5.08 M/mm3 (4.60-6.20); Red Cell Distribution Width 13.6 % (11.5-17.5); White Blood Count 9.9 K/mm3 (4.8-10.8)
--- NOTE | 2020-10-01 13:48 | ECG_ITS ---
APPROVED REPORT Exam: Resting ECG HR:69 bpm ECG Measurements Heart Rate 69 AXES KS 166 P 64 QRSd 92 QRS 54 QT 408 T 69 QTc 437 Conclusion Normal sinus rhythm Late r wave progression Abnormal ECG Electronically signed by : Deejay Horn, 10/01/2020 14:46:02
[2020-10-01 14:11] LABS: Chloride 104 mmol/L (98-107); Potassium 4.9 mmoL/L (3.5-5.1); Sodium 141 mmol/L (136-145)
[2020-10-01 14:14] LABS: Alanine Aminotransferase 52 U/L (12-78); Albumin Level 5.2 g/dl (3.5-5.0); Albumin/Globulin Ratio 1.5 (1.1-1.8); Alkaline Phosphatase 72 U/L (38-126); Anion Gap 12.9 mEq/L (5-15); Aspartate Amino Transferase 25 U/L (17-59); Bilirubin,Total 0.4 mg/dl (0.2-1.3); Blood Urea Nitrogen 17 mg/dl (9-20); Calcium 10.5 mg/dl (8.4-10.2); Carbon Dioxide 29 mmol/L (22.0-30.0); Estimated Glomerular Filt Rate 62 ml/min (>60); GFR (African American) 75 ML/MIN (>60); Globulin 3.4 g/dL (1.3-3.2); Glucose 98 mg/dl (74-100); Total Protein,Serum 8.6 g/dl (6.3-8.2)
== END ==
PROVIDERS: PCP Family Medicine; Visit Provider Family Medicine
DX: Z01.818 Encounter for other preprocedural examination (principal)
CPT/HCPCS: 36415; 71046; 80053; 85025; 93005

== ENCOUNTER → 2020-12-11 10:50 | Outpatient (CLI) | payer MEDICARE, SELFPAY ==
[2020-12-11 11:35] LABS: Basophils # 0.1 K/mm3 (0-0.2); Basophils % 0.7 % (0.1-2.0); Eosinophils # 0.2 K/mm3 (0.0-0.4); Eosinophils % 2.5 % (0.1-12.0); Hematocrit 43.4 % (42.0-52.0); Lymphocytes # 2.9 K/mm3 (0.7-4.5); Lymphocytes % 32.1 % (10-50); Mean Corpuscular HGB Conc 34.6 g/dL (31.8-35.4); Mean Corpuscular Hemoglobin 31.6 pg (27.0-31.2); Mean Corpuscular Volume 91.1 fl (80-94); Monocytes # 0.5 K/mm3 (0.1-1.0); Monocytes % 5.7 % (1.7-9.3); Neutrophils # 5.3 K/mm3 (1.8-7.8); Platelet Count 175 K/mm3 (142-424); Red Blood Count 4.76 M/mm3 (4.60-6.20); Red Cell Distribution Width 13.1 % (11.5-17.5)
[2020-12-11 11:39] LABS: Chloride 103 mmol/L (98-107)
[2020-12-11 11:40] LABS: Potassium 4.5 mmoL/L (3.5-5.1)
[2020-12-11 11:42] LABS: Alanine Aminotransferase 57 U/L (12-78); Aspartate Amino Transferase 23 U/L (17-59); Blood Urea Nitrogen 15 mg/dl (9-20); Estimated Glomerular Filt Rate 69 ml/min (>60); GFR (African American) 83 ML/MIN (>60)
[2020-12-11 11:43] LABS: Albumin Level 4.8 g/dl (3.5-5.0); Alkaline Phosphatase 66 U/L (38-126); Bilirubin,Total 0.6 mg/dl (0.2-1.3); Calcium 9.8 mg/dl (8.4-10.2); Carbon Dioxide 25 mmol/L (22.0-30.0); Globulin 2.4 g/dL (1.3-3.2); Glucose 99 mg/dl (74-100); Total Protein,Serum 7.2 g/dl (6.3-8.2)
[2020-12-11 12:00] LABS: Prothrombin Time 10.7 seconds (10.1-12.5)
[2020-12-11 14:46] LABS: Anion Gap 13.5 mEq/L (5-15); Sodium 137 mmol/L (136-145)
== END ==
PROVIDERS: Visit Provider Nurse Practitioner Family
DX: Z01.818 Encounter for other preprocedural examination (principal); Z51.81 Encounter for therapeutic drug level monitoring
CPT/HCPCS: 36415; 80053; 85025; 85610

== ENCOUNTER → 2020-12-21 11:06 | Outpatient (CLI) | payer MEDICARE, SELFPAY | PROVIDERS: Visit Provider Nurse Practitioner Family | DX: Z01.812 Encounter for preprocedural laboratory examination (principal); Z20.822 Contact with and (suspected) exposure to COVID-19 | CPT/HCPCS: U0003 ==

== ENCOUNTER 2021-03-14 09:00 | Outpatient (RCR) | payer MEDICARE, SELFPAY | END 2021-03-14 09:05 | disposition home or self-care (01) | LOC: PT 09:00 | PROVIDERS: PCP Family Medicine; Visit Provider Orthopaedic Surgery Orthopaedic Surgery of the Spine | DX: M62.81 Muscle weakness (generalized) (principal); M21.372 Foot drop, left foot; Z98.1 Arthrodesis status; M21.371 Foot drop, right foot | CPT/HCPCS: 97010; 97012; 97014; 97110; 97163; 97164; G0283 ==

== ENCOUNTER → 2022-04-02 14:09 | Outpatient (CLI) | payer MEDICARE, SELFPAY ==
[2022-04-02 14:52] LABS: Basophils # 0.2 K/mm3 (0-0.2); Basophils % 1.6 % (0.1-2.0); Eosinophils # 0.2 K/mm3 (0.0-0.4); Eosinophils % 2.5 % (0.1-12.0); Hematocrit 45.8 % (42.0-52.0); Hemoglobin 15.3 g/dL (14.1-18.0); Lymphocytes # 3.2 K/mm3 (0.7-4.5); Lymphocytes % 34.9 % (10-50); Mean Corpuscular HGB Conc 33.3 g/dL (31.8-35.4); Mean Corpuscular Hemoglobin 30.5 pg (27.0-31.2); Mean Corpuscular Volume 91.6 fl (80-94); Mean Platelet Volume 8.5 fl (7.4-10.4); Monocytes # 0.7 K/mm3 (0.1-1.0); Monocytes % 7.2 % (1.7-9.3); Neutrophils # 4.9 K/mm3 (1.8-7.8); Neutrophils % 53.7 % (37.0-80.0); Platelet Count 224 K/mm3 (142-424); Red Cell Distribution Width 13.1 % (11.5-17.5); White Blood Count 9.1 K/mm3 (4.8-10.8)
[2022-04-02 15:02] LABS: Chloride 95 mmol/L (98-107); Potassium 3.8 mmoL/L (3.5-5.1); Sodium 131 mmol/L (136-145)
[2022-04-02 15:04] LABS: Bilirubin,Unconjugated 0.3 mg/dL (0.0-1.1); Blood Urea Nitrogen 16 mg/dl (9-20); Estimated Glomerular Filt Rate 76 ml/min (>60); GFR (African American) 92 ML/MIN (>60)
[2022-04-02 15:05] LABS: Alanine Aminotransferase 49 U/L (12-78); Albumin Level 4.8 g/dl (3.5-5.0); Alkaline Phosphatase 67 U/L (38-126); Anion Gap 11.8 mEq/L (5-15); Aspartate Amino Transferase 27 U/L (17-59); Bilirubin,Indirect 0.2 mg/dL (0.0-0.9); Bilirubin,Total 0.2 mg/dl (0.2-1.3); Calcium 8.7 mg/dl (8.4-10.2); Carbon Dioxide 28 mmol/L (22.0-30.0); Glucose 91 mg/dl (74-100); Total Protein,Serum 7.7 g/dl (6.3-8.2)
[2022-04-02 15:18] LABS: Troponin I < 0.01 ng/ml (0.00-0.034)
[2022-04-02 15:21] LABS: Free T4 (Free Thyroxine) 0.99 ng/dl (0.78-2.19)
[2022-04-02 15:36] LABS: Thyroid Stimulating Hormone 2.07 uIU/mL (0.465-4.68)
== END ==
PROVIDERS: PCP Family Medicine; Visit Provider Nurse Practitioner Family
DX: I10 Essential (primary) hypertension (principal); K21.9 Gastro-esophageal reflux disease without esophagitis; R06.02 Shortness of breath; R07.89 Other chest pain; R06.00 Dyspnea, unspecified; E11.9 Type 2 diabetes mellitus without complications; I63.9 Cerebral infarction, unspecified
CPT/HCPCS: 36415; 80048; 80076; 84439; 84443; 84484; 85025

== ENCOUNTER → 2022-04-09 07:14 | Outpatient (CLI) | payer MEDICARE, SELFPAY ==
--- NOTE | 2022-04-09 07:15 | CA_ITS ---
APPROVED REPORT EXAM: Comprehensive 2D, Doppler, and color-flow Echocardiogram Silk Screen Frame Assembler: Myrna Garcia RT(R) Ht: 6 ft 0 in Wt: 241lbs BSA: 2.31 BP: 158/84 mmHg Indications: SOA, CP, smoker, fatigue, edema, HTN, GERD, hx of nephrectomy. 2D Dimensions LVOT 2.11 cm (M/F) 1.5-2.5 LA Volume 18.80 mL LA Volume Index 8.17 mL/m2 (M/F) 16-34 M-Mode Dimensions RVDd 2.94 cm (0.9-2.6) LA Diam 3.30 cm (1.9-4.0) LVDd 4.32 cm (3.5-5.7) Ao Diam 3.26 cm (2.0-3.7) LVDs 3.29 cm (3.5-5.7) IVSd 0.74 cm (0.6-1.1) PWd 1.13 cm (0.6-1.1) EF (Teich) 47.90% FS 23.80% EDV (Teich) 84.00 mL ESV (Teich) 43.80 mL LV Diastology E Decel Time 193.00 (160-240 msec) E/A Ratio 0.9 MED E' 10.70 (< 7 cm/sec) E'/MED E' Ratio 7.66 (>14) LAT E' 8.60 (<10 cm/sec) E/LAT E' Ratio 9.53 (>14) Mitral Valve MV E Max Himanshu. 82.00 (40-130 cm/s) MV A Velocity 88.00 (40-130 cm/s) E/A Ratio 0.94 MV Decel. Time 193.00 (160-240 ms) MV PHT 57.00 ms Left Ventricle Left atrium is mildly enlarged, left ventricle is normal size mild concentric left ventricular hypertrophy, estimated ejection fraction 55% with no regional wall motion abnormality, grade 1 diastolic dysfunction seen without tissue Doppler evidence of raise left atrial pressure. Right Ventricle Right atrium and right ventricle are mildly enlarged with normal contractility. Aortic Valve Aortic valve is grossly normal, there is no aortic stenosis or aortic insufficiency. Mitral Valve Mitral valve is grossly normal, there is trace mitral regurgitation. Tricuspid Valve Tricuspid valve grossly normal, there is trace tricuspid regurgitation, tricuspid regurgitation jet velocity is inadequate for calculation of the right ventricular systolic pressure. Pulmonic Valve Pulmonic valve is poorly visualized. Great Vessels Aortic root is normal size. Inferior vena cava is normal size with normal inspiratory collapse. Pericardium No significant pericardial effusion noted. Conclusion 1. Mild biatrial enlargement, normal left ventricular size, mild concentric left ventricular hypertrophy, estimated ejection fraction 55% with no regional wall motion abnormality, grade 1 diastolic dysfunction seen without tissue Doppler evidence of raise left atrial pressure. 2. Mildly enlarged right ventricle with normal contractility. 3. Trace mitral and tricuspid regurgitation. 4. No significant pericardial effusion noted. 5. Inferior vena cava normal size with normal inspiratory collapse. Electronically signed by : Drew Rowan MD 04/10/2022 10:45:12
--- NOTE | 2022-04-09 07:15 | CA_ITS ---
FINAL REPORT TECHNIQUE: Color Doppler, duplex Doppler and cordero scale sonography of the bilateral neck arterial vasculature was performed. Velocities were measured in the carotid arteries. Stenosis evaluation based on the validated velocity criteria. CLINICAL HISTORY: dizziness, HTN, Smoker, FINDINGS: The peak systolic velocity of the right common carotid artery is 93 cm/s. The peak systolic velocity of the right internal carotid artery is 105 cm/s and end diastolic velocity 45 cm/s. The ICA/CCA ratio is 1.1. A small amount of plaque is present. The right external carotid artery is patent. The right vertebral artery is patent with antegrade flow. The peak systolic velocity of the left common carotid artery is 83 cm/s. The peak systolic velocity of the left internal carotid artery is 106 cm/s and end diastolic velocity 50 cm/s. The ICA/CCA ratio is 1.6. A small amount of plaque is present. The left external carotid artery is patent.The left vertebral artery is patent with antegrade flow. IMPRESSION: Less than 50% bilateral carotid stenoses. Bilateral patent vertebral arteries with antegrade flow. If indicated, CTA or MRA could further evaluate. Reviewed, Interpreted and Dictated by Lan Ware III, MD Transcribed by Arturo Sanderson Authenticated and [facility]
--- NOTE | 2022-04-09 07:21 | NM_ITS ---
APPROVED REPORT Exam: Nuclear Stress Test Indication: fatigue..dizziness.short of breath Patient Location: Outpatient Stress Tech: Niurka Sellers HI Tech:GIANCARLO Francis RT(R)(N) Ht: 6 ft 0 in Wt: 240 lbs HR: 88 bpm BP: 154/96 mmHg BSA: 2.30 m2 TID: 1.16 History: fatigue..dizziness.short of breath Procedure: Patient received a 0.4 mg of intravenous Lexiscan, resting heart rate 88 bpm, resting blood pressure 154/96 mmHg, with Lexiscan maximum heart rate achived was 112 bpm which is Less than 85 % of the maximum predicted heart rate and blood pressure was 176/98 mmHg. With Lexiscan, patient denied any complaint of chest pain. Electrocardiogram Resting electrocardiogram shows sinus rhythm, with Lexiscan there is less than 1.[address] segment depression noted from the baseline EKG. The EKG portion of the Lexiscan is nondiagnostic. Cardiac Stress and Resting SPECT Images: Cardiac Stress and Resting SPECT images were obtained using technetium 99m Myoview 31.8 mCi stress and 10.63 mCi at rest. Gated SPECT analysis of segmental wall motion and calculation of the ejection fraction also done. Prone images were also obtained. Cardiac stress and rest SPECT images show uniform myocardial activity without segmental perfusion abnormality, computer derived ejection fraction is 59% with no regional wall motion abnormality, right ventricle is normal size and contractility. Conclusion: 1. The EKG portion of the Lexiscan is nondiagnostic. 2. No scintigraphic evidence of reversible ischemia seen, computer derived ejection fraction 59% with no regional wall motion abnormality, right ventricle is normal size and contractility. 3. Likely normal Lexiscan Myoview study. Electronically signed by : Drew Rowan MD 04/10/2022 08:38:31
--- NOTE | 2022-04-09 09:51 | CA_ITS ---
APPROVED REPORT Exam: Pharmacologic Technologist: Niurka Irizarry, Ht: 6 ft 0 in Wt: 241 lbs BSA: 2.31 m2 HR: 78 bpm BP: 154/96 mmHg Medical History Medications: Aspirin,,,,, Carvedilol,,,,, Nexium,,,,, Albuterol,,,,, Valsartan-HCTZ,,,,, Stress Test Details Test: LEXISCAN Reason for pharmacologic stress test: physical limitation. HR Resting HR: 88 bpm Max Heart Rate (APMHR): 159.135514 bpm Max HR Achieved: 112 bpm Target HR (85% APMHR): 135.101889 bpm % of APMHR: 70.44 Recovery HR: 101 bpm BP Resting BP: 154.0/96.0 mmHg Max BP: 176.0/98.0 mmHg Recovery BP: 153.0/88.0 mmHg ECG Resting ECG: NSR, normal Clinical Exercise duration: 04:01 min Highest Stage Achieved: Stress ECG Conclusion Symptoms: SOA, head discomfort. No CP. Arrhythmias/Ectopy: None. ST-T Changes: No significant changes. Conclusion: Unremarkable Lexiscan stress. Myoview images reported separately. Test Summary REST . . . . . . . Resting REST 05:06 . . 88 . 154/ 96 . . Stage 1 01:00 . . 96 . . . . Stage 2 01:00 . . 108 . 156/ 90 . . Stage 3 01:00 . . 112 . 157/101 . . Stage 4 01:00 . . 107 . 153/ 96 . . Stage 4 01:01 . . 107 . 153/ 96 . Stop exercise at 04:01 RECOVERY 01:00 . . 107 . 166/112 . . RECOVERY 02:00 . . 103 . 166/112 . . RECOVERY 03:00 . . 104 . 168/ 96 . . RECOVERY 04:00 . . 98 . 153/ 88 . . RECOVERY 04:19 . . 102 . 153/ 88 . . Electronically signed by : Drew Rowan MD 04/10/2022 08:35:50
== END ==
PROVIDERS: PCP Family Medicine; Visit Provider Nurse Practitioner Family
DX: I10 Essential (primary) hypertension (principal); K21.9 Gastro-esophageal reflux disease without esophagitis; R06.02 Shortness of breath; R07.89 Other chest pain; R42 Dizziness and giddiness; I65.23 Occlusion and stenosis of bilateral carotid arteries
CPT/HCPCS: 78452; 93017; 93306; 93880; A9502; J2785

== ENCOUNTER → 2022-06-24 07:08 | Outpatient (CLI) | payer MEDICARE, SELFPAY ==
--- NOTE | 2022-06-24 07:11 | FL_ITS ---
FINAL REPORT CLINICAL HISTORY: . difficulty swallowing 1.30 fluoro time FINDINGS: ESOPHAGRAM HISTORY: Dysphagia. PROCEDURE: The patient ingested barium. Effervescent crystals were also administered. Spot and overhead films were obtained. FINDINGS: The esophagus is normal. There is no hiatal hernia. No esophageal stricture is identified. A 13 mm barium tablet passes through the esophagus and into the stomach without delay. There is no gastroesophageal reflux. Mild esophageal dysmotility was demonstrated during the exam. Fluoroscopy time: 1 minute 30 seconds. 11 radiographs were obtained. IMPRESSION: A mild esophageal dysmotility. Otherwise, unremarkable exam. Films reviewed , interpreted and dictated by Dr. Costa. Transcribed by Brayan Baxter PA-C. Reviewed, Interpreted and Dictated by Ramses Costa MD Transcribed by SHIMA Rand Authenticated and [facility]
--- NOTE | 2022-06-24 08:30 | MR_ITS ---
FINAL REPORT CLINICAL HISTORY: LOW BACK PAIN lower back pain many year with pain, tingling and numbness down bilateral legs FINDINGS: Multiplanar MR imaging of the lumbar spine was performed without contrast. On the sagittal T2-weighted images, there is abnormal decreased signal throughout the lumbar discs. There is mild loss of height L5-S1. The vertebral alignment is normal. There is magnetic artifact in the T12 vertebra. T12-L1: A mild disc bulge is present. L1-2: There is no significant canal stenosis or neural foraminal narrowing. L2-3: A mild to moderate diffuse disc bulge is present with a posterolateral disc protrusions. There is mild to moderate right and moderate left neural foraminal narrowing. L3-4: A xvcw-ry-nfbhmott diffuse disc bulge is present with mild to moderate bilateral neural foraminal narrowing. L4-5: A moderate diffuse disc bulge is present with a left posterolateral disc protrusion and moderate left neural foraminal narrowing. L5-S1: A moderate diffuse disc bulge is present with moderate to high-grade bilateral neural foraminal narrowing. IMPRESSION: Neural foraminal compromise, particularly evident bilaterally at L5-S1.. Reviewed, Interpreted and Dictated by Ramses Costa MD Transcribed by Birgit Larsen Authenticated and [facility]
== END ==
PROVIDERS: PCP Nurse Practitioner Family; Visit Provider Nurse Practitioner Family
DX: R13.10 Dysphagia, unspecified (principal); M54.41 Lumbago with sciatica, right side
CPT/HCPCS: 72148; 74220; 76376

== ENCOUNTER → 2022-08-11 13:10 | Outpatient (CLI) | payer MEDICARE, SELFPAY ==
--- NOTE | 2022-08-11 13:13 | MR_ITS ---
FINAL REPORT TECHNIQUE: Multiplanar and multisequence imaging of the cervical spine was obtained. CLINICAL HISTORY: HAND WEAKNESS PAIN , TINGLING , NUMBNESS IN BILATERAL ARMS COMPARISON: 04/18/2020 FINDINGS: Alignment is normal. Vertebral body height is preserved. Signal intensity within the substance of the spinal cord is normal. Bone marrow signal intensity is normal. Paraspinal soft tissues are within normal limits. C2/3: There is an annular disc bulge asymmetric to the left with left greater than right facet osteoarthropathy. There is no central stenosis. There is mild left neural foraminal narrowing. C3/4: There is an annular disc bulge with degenerative endplate change, asymmetric to the right. There is no central stenosis. There is severe right, greater than left neural foraminal narrowing. C4/5: There is an annular disc bulge with degenerative endplate change and facet osteoarthropathy. There is mild central stenosis. There is severe, left greater than right neural foraminal narrowing. C5/6: There is an annular disc bulge with endplate change and facet osteoarthropathy. There is moderate to severe central canal stenosis. There is severe bilateral neural foraminal narrowing, asymmetric to the left. C6/7: There is an annular disc bulge with degenerative endplate change. There is mild to moderate central canal stenosis and bilateral neural foraminal narrowing. C7/T1: There is no focal disc herniation, central stenosis or neural foraminal narrowing. IMPRESSION: Multilevel degenerative disc disease, slightly progressed since prior. Reviewed, Interpreted and Dictated by Gerda Eisenberg MD Transcribed by Sammi Das Authenticated and . [facility]
== END ==
PROVIDERS: PCP Nurse Practitioner Family; Visit Provider Neurological Surgery
DX: R29.898 Other symptoms and signs involving the musculoskeletal system (principal)
CPT/HCPCS: 72141; 76376

== ENCOUNTER → 2023-07-12 07:38 | Outpatient (CLI) | payer MEDICARE, SELFPAY ==
--- NOTE | 2023-07-12 07:45 | US_ITS ---
FINAL REPORT CLINICAL HISTORY: RUQ PAIN COMPARISON: None FINDINGS: Sonographic images of the right upper quadrant were obtained. The pancreas is partially obscured. Liver is fatty infiltrated. The gallbladder appears normal without evidence of gallstones.There is no evidence of biliary ductal dilatation.The common duct measures 3 mm. Limited images of the right kidney are unremarkable. IMPRESSION: Fatty liver. Reviewed, Interpreted and Dictated by Ramses Costa MD Transcribed by Hansa Og Authenticated and [facility]
--- NOTE | 2023-07-12 09:39 | XR_ITS ---
FINAL REPORT CLINICAL HISTORY: rentention COMPARISON: None FINDINGS: ABDOMEN SINGLE VIEW / KUB A single view of the abdomen was obtained with a coned down view of the pelvis. There is a nonspecific bowel gas pattern. There is no significant stool burden. There are no abnormally dilated loops of small bowel. No abnormal calcification is identified. There is fusion hardware bridging T10-11 and T11-12 IMPRESSION: No acute process. Reviewed, Interpreted and Dictated by Ramses Costa MD Transcribed by Hansa Og Authenticated and [facility]
[2023-07-12 11:24] LABS: Blood Urea Nitrogen 16 mg/dl (9-20); Estimated Glomerular Filt Rate 68 ml/min (>60); GFR (African American) 82 ML/MIN (>60)
[2023-07-13 09:12] LABS: PSA, Free 0.42 ng/mL; Prostate Specific Ag 2.2 ng/mL (0.0-4.0)
== END ==
PROVIDERS: Urology; PCP Nurse Practitioner Family; Visit Provider Family Medicine
DX: R33.9 Retention of urine, unspecified (principal); R10.11 Right upper quadrant pain
CPT/HCPCS: 36415; 74018; 76705; 82565; 84153; 84154; 84520

== ENCOUNTER 2025-04-27 13:52 | Outpatient (CLI) | payer MEDICARE, SELFPAY ==
--- OUTSIDE RECORDS SUMMARY | 2024-01-17 05:30 | XMS_ITS ---
Author Organization [facility] Address [address] [place], [place] [id number] Care Team Providers Care Inside Sales Consultant Name Role Phone Elva Bettsian Primary Care Provider [phone] Allergies Allergen (clinical drug ingredient) Drug/Non Drug Allergy documented on EMR Reaction Allergy Type Onset Date Status varenicline Varenicline Unknown Drug Allergy Act raiza Results Component Value Reference Range Notes P-Comprehensive Metabolic Pa destin (CMP) Reviewed date:01/18/2024 02:05:44 PM Interpretation:Normal Performing Lab: Notes/Report: CLIA: [id number] Ayo Jc MD, Cook Room Supervisor [facility] , [address], [place] [address] Test performed by [employer] Sodium 136 135-145 mmol/L Potassium 4.4 3.5-5.3 mmol/L Chloride 98 97-108 mmol/L CO2 28 22-32 mmol/L Glucose 94 65-99 mg/dL BUN 19 8-23 mg/dL Creatinine 1.08 0.70-1.30 mg/dL Calcium 9.6 8.6-10.4 mg/dL eGFR by Creatinine 77 >59 mL/min/1.73m2 Protein 7.4 6.0-8.3 g/dL Albumin 5.1 3.5-5.3 g/dL Alkaline Phosphatase 79 40-129 IU/L ALT (SGPT) 27 <5-55 IU/L AST (SGOT) 10 <5-46 IU/L Bilirubin, Total 0.6 <0.2-1.2 mg/dL A/G Ratio 2.2 1.1-2.5 mg/dL P-Lipid Panel Reviewed date:01/18/2024 02:05:44 PM Interpretation:chol 200, trigs 152, hdl 36, chol/hdl 5.56, non-hdl 164, ldl 134, ldl/hdl 3.7 Performing Lab: Notes/Report: Test performed by [employer] [address] , [address], [place] [address] Ayo Jc MD, Cook Room Supervisor CLIA: [id number] Cholesterol 200 <200 mg/dL Triglycerides 152 <150 mg/dL HDL Cholesterol 36 >39 mg/dL Cholesterol / HDL Ratio 5.56 0.00-4.99 Ratio Non-HDL Cholesterol 164 <130 mg/dL LDL Cholesterol (Calculation) 134 <130 mg/dL LDL Cholesterol Levels* Less than 100 mg/dL Optimal 100 to 129 mg/dL Near Optimal/ Above Optimal 130 to 159 mg/dL Borderline High 160 to 189 mg/dL High 190 mg/dL and above Very High * Categories as recommended by the 2004 ATPIII guidelines LDL/HDL Ratio 3.7 <3.3 Ratio LDL Cholesterol Patient History Test Date: 07/06/2023 LDL Results: 162 Units: mg/dL % Change: - Test Date: 01/17/2024 LDL Results: 134 Units: mg/dL % Change: -17% P-TSH reflex to FT4 Reviewed date:01/18/2024 02:05:43 PM Interpretation:Normal Performing Lab: Notes/Report: Test performed by [employer], [address] , [address], [place] [address] Ayo Jc MD, Cook Room Supervisor CLIA: [id number] TSH reflex to FT4 1.90 0.43-5.25 mU/L REASON FOR VISIT 6 month and blood work Medications Medication SIG (Take, Route, Frequency, Duration) Notes Start Date End Date Status CPAP SUPPLIES DIRECTED 11/30/2022 Act raiza Carvedilol 6.25 MG 1 tablet with food O rally Twice a day; Duration: 90 days 01/17/2024 Active Sildenafil Citrate 50 MG 1 tab(s) orally once a day as needed Active Esomeprazole Magnesium 40 mg 1 capsule Orally twice a day; Duration: 90 days Active Senna Plus 8.6-50 MG 1 tablet as needed Orally Once a day Active Rosuvastatin Calcium 10 MG 1 tablet Oral ly Once a day; Duration: 90 days Active Albuterol Sulfate HFA 108 (90 Base) MCG/ACT INHALE TWO PUFFS BY MOUTH FOUR TIMES DAILY NEEDED --SHAKE WELL BEFORE USE--; Duration: 25 Active Garlic 1 TAB PO THREE TIMES A DAY Active CareTouch CPAP & BIPAP Hose DIRECTED 12/11/2011 Active CBD OIL ORALLY Active Tamsulosin HCl 0.4 mg 2 capsules Orally Once a day; Duration: 90 days Active Vitamin D3 25 MCG (1000 UT) 1 tab(s) ora lly once a day Active Aspir-Low 81 MG 1 tab(s) orally once a day Active Fish Oil 1000 MG 1 capsule Orally Onc e a day; Duration: 30 day(s) Active Vital Signs Blood pressure systolic 132 mm Hg 01/17/20 24 Blood pressure diastolic 80 mm Hg 024 Heart Rate 92 /min 01/17/2024 Height 71 in 01/17/2024 Weight 241.4 lbs 01/17/2024 BMI 33.66 kg/m2 01/17/2024 Encounters Encounter Location Date Provider Diagnosis [facility] [address] [facility] [address] [facility] [address] [place] [id number] 01/17/2024 Anton Betts Essential hypertensi on I10 ; Hyperlipidemia, unspecified hyperlipidemia E78.5 ; Gastroesophageal reflux disease, esophagitis presence not specified K21.9 and Benign prostatic hyperplasia with lower urinary tract symptoms N40.1 Assessments Encounter Date Diagnosis (ICD Code) Assessment Notes Treatment Notes Treatment Clinical Notes Section Notes 01/17/2024 Essential hypertension (ICD-10 - I10) 01/17/2024 Hyperlipidemia, unspecified hyperlipidemia (ICD-10 - E78.5) 01/17/2024 Gastroesophageal reflux disease, esophagitis presence not specified (ICD-10 - K21.9) 01/17/2024 Benign prostatic hyperplasia with lower urinary tract symptoms (ICD-10 - N40.1) Plan Of Treatment Medication Medication Name Sig Start Date Stop Date Notes Carvedilol 6.25 MG 1 tablet with food O rally Twice a day; Duration: 90 days 01/17/2024 Valsartan-hydroCHLOROthiazid e 160-12.5 MG 1 tab(s) orally once a day 09/30/2021 Carvedilol 3.125 MG 1 tab(s) orally 2 ti mes a day 10/20/2021 Esomeprazole Magnesium 40 mg 1 capsule O rally twice a day; Duration: 90 days Rosuvastatin Calcium 10 MG 1 tablet Oral ly Once a day; Duration: 90 days Tamsulosin HCl 0.4 mg 2 capsules Orally Once a day; Duration: 90 days Next Appt Details Follow Up: 6 Months, Reason: Provider Name:Anton Whyte ry, 10/22/2025 10:45:00 AM, [address] [facility] [address] [facility], [address], [place], [id number], Progress Notes * Chase RIVASDOB: [birth year] (65 yo M)Acc No.[id number]:01/17/2024 Patient: Janis Chase GARCIA Provider: Farhat Betts M.D. :1960 A ge:63 Y S ex:Male Date:01/17/2024 Address:[address] , [place], [id number] Subjective: * Chief Complaints: * 1 . 6 month and blood work. * HPI: C ardiology: 63 year old male presents with c/o Blood Pressure Elevated P t here for 6 mo f/u on hypertension, states he is doing well and does not have any concerns. c/o Hyperlipidemia p t is fasting today. * ROS: D ERMATOLOGY: no R bhargavi. n o H rafat. G ASTROENTEROLOGY: no N ausea. n o V omiting. U ROLOGY: no D ifficulty urinating. n o B lood in urine. * Medical History: H ypertension, Sleep Apnea, Kidney Donor, Systemic Lupus, Sjogren's Syndrome, Esophageal Reflux, Colon Polyps, Low Back Pain, s/p MRI 2018 and pain management evaluation, Sciatica, Lumbar Disc Disease, Tobacco Abuse, BPH, Tuna Fish Allergy. * Surgical History: K idney Donation 2004, Colonoscopy 12/2010, EGD 06/2017, Colonoscopy 10/2017, Bladder Stent- Dr. Jacobsen, [facility] 07/14/2018, Spinal Fusion [id number] 12/2020, Lumbar fusion L4-L5 08/2022. * Family History: F ather: alive. M other: , breast cancer. S iblings: alive. 1 brother(s) , 1 sister(s) - healthy. 4 son(s) , 2 daughter(s) - healthy. . * Social History: C URRENT TOBACCO USE S moking Status: P atient does smoke, p acks per day: 1 ,?number of cigarettes per day: 2 0, S rehan age of: 1 8, S moking preference: cigarettes. C affeine: yes, frequency:2 pots of coffee a day. Past smoking status: yes, Smoking status: Patient does smoke, Packs per day: 1, Smoking preference: cigarettes. Alcohol: Yes, Type: , Frequency: ,Years: , Determination:12 pack a week, beer. * Medications: T aking Fish Oil 1000 MG Capsule 1 capsule Orally Once a day , Taking CareTouch CPAP & BIPAP Hose DIRECTED , Taking Vitamin D3 25 MCG (1000 UT) Tablet 1 tab(s) orally once a day , Taking Aspir-Low 81 MG Tablet Delayed Release 1 tab(s) orally once a day , Taking CBD OIL ORALLY , Taking Garlic 1 TAB 1 TAB PO THREE TIMES A DAY , Taking Senna Plus 8.6-50 MG Tablet 1 tablet as needed Orally Once a day , Taking Albuterol Sulfate HFA 108 (90 Base) MCG/ACT Aerosol Solution INHALE TWO PUFFS BY MOUTH FOUR TIMES DAILY NEEDED --SHAKE WELL BEFORE USE-- , Taking Sildenafil Citrate 50 MG Tablet 1 tab(s) orally once a day as needed , Taking Rosuvastatin Calcium 10 MG Tablet 1 tablet Orally Once a day , Taking Carvedilol 3.125 MG Tablet 1 tab(s) orally 2 times a day , Taking CPAP SUPPLIES DIRECTED , Taking Tamsulosin HCl 0.4 mg Capsule 2 capsules Orally Once a day , Taking Esomeprazole Magnesium 40 mg Capsule Delayed Release 1 capsule Orally twice a day , Not-Taking Valsartan-hydroCHLOROthiazide 160-12.5 MG Tablet 1 tab(s) orally once a day , Medication List reviewed and reconciled with the patient * Allergies: V arenicline. Objective: * Vitals: W t:241.4, Temp:98.0, BP:132/80, HR:92, Nurse:mara, Ht: 71, BMI:33.66. * Examination: C ardiology: General Appearance: p leasant, NAD. H eart sounds: R RR, normal S1, S2. L ungs: c lear, no rales or wheezes. E xtremities: n o leg edema. P eripheral pulses: 2 plus bilateral. Assessment: * Assessment: 1. E ssential hypertension - I10 (Primary) 2 . H yperlipidemia, unspecified hyperlipidemia - E78.5 3 . G astroesophageal reflux disease, esophagitis presence not specified - K21.9 4 . B enign prostatic hyperplasia with lower urinary tract symptoms - N40.1 Plan: * Treatment: Value Reference Range A /G Ratio 2.2 1.1-2.5 - mg/dL * A lbumin 5.1 3.5-5.3 - g/dL * A lkaline Phosphatase 79 40-129 - IU/L * A LT (SGPT) 27 <5-55 - IU/L * A ST (SGOT) 10 <5-46 - IU/L * B ilirubin, Total 0.6 <0.2-1.2 - mg/dL * B UN 19 8-23 - mg/dL * C alcium 9.6 8.6-10.4 - mg/dL * C hloride 98 97-108 - mmol/L * C O2 28 22-32 - mmol/L * C reatinine 1.08 0.70-1.30 - mg/dL * G lucose 94 65-99 - mg/dL * P otassium 4.4 3.5-5.3 - mmol/L * S odium 136 135-145 - mmol/L * P rotein 7.4 6.0-8.3 - g/dL * e GFR by Creatinine 77 >59 - mL/min/1.73m2 * Cande Joseph 01/18/2024 2:05: 35 PM >See phone encounter 2.?Hyperlipidemia, unspecified hyperlipidemia? Refill Rosuvastatin Calcium Tablet, 10 MG, 1 tablet, Orally, Once a day, 90 days, 90, Refills 1. ?LAB: P-Comprehensive Metabolic Panel (CMP) (Collection Date & Time - 01/17/2024 08:45 AM)?Normal* Value Reference Range A /G Ratio 2.2 1.1-2.5 - mg/dL * A lbumin 5.1 3.5-5.3 - g/dL * A lkaline Phosphatase 79 40-129 - IU/L * A LT (SGPT) 27 <5-55 - IU/L * A ST (SGOT) 10 <5-46 - IU/L * B ilirubin, Total 0.6 <0.2-1.2 - mg/dL * B UN 19 8-23 - mg/dL * C alcium 9.6 8.6-10.4 - mg/dL * C hloride 98 97-108 - mmol/L * C O2 28 22-32 - mmol/L * C reatinine 1.08 0.70-1.30 - mg/dL * G lucose 94 65-99 - mg/dL * P otassium 4.4 3.5-5.3 - mmol/L * S odium 136 135-145 - mmol/L * P rotein 7.4 6.0-8.3 - g/dL * e GFR by Creatinine 77 >59 - mL/min/1.73m2 * Cande Joseph 01/18/2024 2:05: 35 PM >See phone encounter ?LAB: P-Lipid Panel (Collection Date & Time - 01/17/2024 08:45 AM)?chol 200, trigs 152, hdl 36, chol/hdl 5.56, non-hdl 164, ldl 134, ldl/hdl 3.7* Value Reference Range C holesterol / HDL Ratio 5.56 H 0.00-4.99 - Ratio * C holesterol 200 H <200 - mg/dL * H DL Cholesterol 36 L >39 - mg/dL * L DL Cholesterol (Calculation) 134 H <130 - mg/d L * L DL/HDL Ratio 3.7 H <3.3 - Ratio * N on-HDL Cholesterol 164 H <130 - mg/dL * T riglycerides 152 H <150 - mg/dL * Cande Joseph 01/18/2024 2:05: 35 PM >See phone encounter ?LAB: P-TSH reflex to FT4 (Collection Date & Time - 01/17/2024 08:45 AM)? Normal* Value Reference Range T SH reflex to FT4 1.90 0.43-5.25 - mU/L * Cande Joseph 01/18/2024 2:05: 35 PM >See phone encounter 3.?Gastroesophageal reflux disease, esophagitis presence not specified? Refill Esomeprazole Magnesium Capsule Delayed Release, 40 mg, 1 capsule, Orally, twice a day, 90 days, 180, Refills 1.??4.?Benign prostatic hyperplasia with lower urinary tract symptoms? Refill Tamsulosin HCl Capsule, 0.4 mg, 2 capsules, Orally, Once a day, 90 days, 180, Refills 1. ? * Procedure Codes: G 2211 Complex e/m visit add on * Follow Up: 6 Months * Images: Billing Information: * Visit Code: 89631 Office Visit, Est Pt., Level 4. * Procedure Codes: G2211 Complex e/m visit add on. * Electronic signature of Jazmyne Betts MD on 04/27/2025 at 01:56 PM EDT Sign off status: Pending * Provider: Farhat Betts M.D. Date: 0 01/17/2024 Generated for Chyna cameron/Sinan/Aristidesitting on: 1 01:56 PM EDT History and Physical Notes * HPI (History of Present Illness) Category Sub-Category Detail Notes Category Not es Cardiology Blood Pressure Elevated Pt here for 6 mo f/u on hypertension, states he is doing well and does not have any concerns Hyperlipidemia pt is fasting today Examination Category Sub-Category Detail Notes Category Not es Cardiology Lungs: clear, no rales or wheezes Heart sounds: RRR, normal S1, S2 Extremities: no leg edema Peripheral pulses: 2 plus bilateral General Appearance: pleasant, NAD
--- OUTSIDE RECORDS SUMMARY | 2024-07-14 06:00 | XMS_ITS ---
Author Organization [facility] Address [address] [place], [place] [id number] Care Team Providers Care Crook Operator Name Role Phone Anton Betts Primary Care Provider Yovana Martin Unavailable [phone] Allergies Allergen (clinical drug ingredient) Drug/Non Drug Allergy documented on EMR Reaction Allergy Type Onset Date Status varenicline Varenicline Unknown Drug Allergy Act raiza Results Component Value Reference Range Notes CBC Venipuncture (in house) Reviewed date:07/14/2024 12:21:05 PM Interpretation: Performing Lab: Notes/Report: wbc 9.4 3.5 - 10 lymph 30.4 15 - 50 mid 7.6 2 - 15 gran 62.0 35 - 80 rbc 5.32 3.5 - 5.5 hgb 15.9 11.5 - 16.5 hct 47.1 35 - 55 mcv 88.4 75 - 100 mch 29.8 25 - 35 mchc 33.7 31 - 38 platlet 182 100 - 400 P-Comprehensive Metabolic Pa destin (CMP) Reviewed date:07/17/2024 02:01:02 PM Interpretation: Performing Lab: Notes/Report: CLIA: [id number] Ayo Jc MD, Manager Music [address] [facility] , [address], [place] [address] Test performed by [email or web address], [facility] Sodium 139 135-145 mmol/L Potassium 4.8 3.5-5.3 mmol/L Chloride 97 97-108 mmol/L CO2 27 22-32 mmol/L Glucose 88 65-99 mg/dL BUN 13 8-23 mg/dL Creatinine 1.13 0.70-1.30 mg/dL Calcium 10.0 8.6-10.4 mg/dL eGFR by Creatinine 73 >59 mL/min/1.73m2 Protein 7.8 6.0-8.3 g/dL Albumin 4.8 3.5-5.3 g/dL Alkaline Phosphatase 78 40-129 IU/L ALT (SGPT) 35 <5-55 IU/L AST (SGOT) 9 <5-46 IU/L Bilirubin, Total 0.6 <0.2-1.2 mg/dL A/G Ratio 1.6 1.1-2.5 P-Lipid Panel Reviewed date:07/17/2024 02:01:02 PM Interpretation: Performing Lab: Notes/Report: Test performed by [email or web address], [address] , [address], [place] [address] Ayo Jc MD, Manager Music CLIA: [id number] Cholesterol 191 <200 mg/dL Triglycerides 210 <150 mg/dL HDL Cholesterol 41 >39 mg/dL Cholesterol / HDL Ratio 4.66 0.00-4.99 Ratio Non-HDL Cholesterol 150 <130 mg/dL LDL Cholesterol (Calculation) 108 <130 mg/dL LDL Cholesterol Levels* Less than 100 mg/dL Optimal 100 to 129 mg/dL Near Optimal/ Above Optimal 130 to 159 mg/dL Borderline High 160 to 189 mg/dL High 190 mg/dL and above Very High * Categories as recommended by the 2004 ATPIII guidelines LDL/HDL Ratio 2.6 <3.3 Ratio LDL Cholesterol Patient History Test Date: 07/06/2023 LDL Results: 162 Units: mg/dL % Change: - Test Date: 01/17/2024 LDL Results: 134 Units: mg/dL % Change: -17% Test Date: 07/14/2024 LDL Results: 108 Units: mg/dL % Change: -19% P-PSA Reviewed date:07/17/2024 02:01:02 PM Interpretation: Performing Lab: Notes/Report: Test performed by [facility] [facility] , [place] [address] Ayo Jc MD, Manager Music CLIA: [id number] PSA 2.39 <4.00 ng/mL Please note this is an ultrasensitive PSA assay with a lower limit of detection of 0.014 ng/mL. This test is performed by the [employer] ECLIA methodology. Values obtained with different assay methods or kits cannot be directly compared. P-TSH reflex to FT4 Reviewed date:07/17/2024 02:01:02 PM Interpretation: Performing Lab: Notes/Report: Test performed by [facility] , [place] [address] Ayo Jc MD, Manager Music CLIA: [id number] TSH reflex to FT4 2.32 0.43-5.25 mU/L REASON FOR VISIT 6 month check, Needs labs with PSA, low dose chest CT, & flu vaccine Medications Medication SIG (Take, Route, Frequency, Duration) Notes Start Date End Date Status Carvedilol 6.25 MG 1 tablet with food O rally Twice a day; Duration: 90 days Active Sildenafil Citrate 50 MG 1 tab(s) orally once a day as needed Active CPAP SUPPLIES DIRECTED 11/30/2022 Act raiza Carvedilol 6.25 MG 1 tablet with food O rally Twice a day; Duration: 90 days Active Albuterol Sulfate HFA 108 (90 Base) MCG/ACT 1-2 puffs as needed Inhalation every 4 hrs, prn Active CBD OIL ORALLY Active Esomeprazole Magnesium 40 mg 1 capsule Orally twice a day; Duration: 90 days Active Garlic 1 TAB PO THREE TIMES A DAY Active Rosuvastatin Calcium 10 MG 1 tablet Oral ly Once a day; Duration: 90 days Active Senna Plus 8.6-50 MG 1 tablet as needed Orally Once a day Active CareTouch CPAP & BIPAP Hose DIRECTED 12/11/2011 Active Vitamin D3 25 MCG (1000 UT) 1 tab(s) ora lly once a day Active Aspir-Low 81 MG 1 tab(s) orally once a day Active Fish Oil 1000 MG 1 capsule Orally Onc e a day; Duration: 30 day(s) Active Tamsulosin HCl 0.4 mg 2 capsules Orally Once a day; Duration: 90 days Active Problems Problem Type SNOMED Code ICD Code Onset Dates Problem Status W/U Status Risk Notes Problem Tobacco use (057985820) Tobacco use disorder (F17.200) Active confirmed Vital Signs Blood pressure systolic 130 mm Hg 07/14/20 24 Blood pressure diastolic 80 mm Hg 024 Heart Rate 83 /min 07/14/2024 Height 71 in 07/14/2024 Weight 247.2 lbs 07/14/2024 BMI 34.47 kg/m2 07/14/2024 Encounters Encounter Location Date Provider Diagnosis [facility] [address] [id number] 07/14/2024 Yovana Martin Essential hypertensi on I10 ; Hyperlipidemia, unspecified hyperlipidemia E78.5 ; Gastroesophageal reflux disease, esophagitis presence not specified K21.9 ; Benign prostatic hyperplasia with lower urinary tract symptoms N40.1 ; Bronchospasm J98.01 and Tobacco use disorder F17.200 Assessments Encounter Date Diagnosis (ICD Code) Assessment Notes Treatment Notes Treatment Clinical Notes Section Notes 07/14/2024 Essential hypertension (ICD-10 - I10) 07/14/2024 Hyperlipidemia, unspecified hyperlipidemia (ICD-10 - E78.5) 07/14/2024 Gastroesophageal reflux disease, esophagitis presence not specified (ICD-10 - K21.9) 07/14/2024 Benign prostatic hyperplasia with lower urinary tract symptoms (ICD-10 - N40.1) 07/14/2024 Bronchospasm (ICD-10 - J98.01) 07/14/2024 Tobacco use disorder (ICD-10 - F17.200) Plan Of Treatment Medication Medication Name Sig Start Date Stop Date Notes Carvedilol 6.25 MG 1 tablet with food O rally Twice a day; Duration: 90 days Albuterol Sulfate HFA 108 (9 0 Base) MCG/ACT 1-2 puffs as needed Inhalation every 4 hrs, prn Esomeprazole Magnesium 40 mg 1 capsule O rally twice a day; Duration: 90 days Rosuvastatin Calcium 10 MG 1 tablet Oral ly Once a day; Duration: 90 days Tamsulosin HCl 0.4 mg 2 capsules Orally Once a day; Duration: 90 days Pending Test Test Name Order Date CT SCAN : CHEST, LUNG CANCER SCREENING L OW DOSE 07/14/2024 Next Appt Details Follow Up: via phone to repo rt test results, Reason: Provider Name:Anton Whyte , 10/22/2025 10:45:00 AM, [address] [facility] [address] [facility], [address] [place] [address], [phone], Progress Notes * Chase RIVASDOB: [birth year] (65 yo M)Acc No.[id number]:07/14/2024 Progress Notes Patient: Janis GARCIAChase Provider: SHIMA Diaz :1960 A ge:64 Y S ex:Male Date:07/14/2024 Address:[address] [place] [address] , [phone] Pcp:Anton Betts Subjective: * Chief Complaints: * 1 . 6 month check. 2. Needs labs with PSA, low dose chest CT, & flu vaccine. * HPI: H PI: 64 year old male presents with c/o Patient is here today for?Pt is here today for a 6 month check up with fasting labs. Pt sts h e is doing well and has no concerns or complaints at this time. * ROS: D ERMATOLOGY: no R bhargavi. [...] 06/2017, Colonoscopy 10/2017, Bladder Stent- Dr. Jacobsen, [facility] 07/14/2018, Spinal Fusion [id number] 12/2020, Lumbar fusion L4-L5 08/2022. * Hospitalization/Major Diagno stic Procedure: D enies Past Hospitalization. * Family History: F ather: alive. M [...] once a day as needed , Taking CPAP SUPPLIES DIRECTED , Taking Tamsulosin HCl 0.4 mg Capsule 2 capsules Orally Once a day , Taking Esomeprazole Magnesium 40 mg Capsule Delayed Release 1 capsule Orally twice a day , Taking Rosuvastatin Calcium 10 MG Tablet 1 tablet Orally Once a day , Taking Carvedilol 6.25 MG Tablet 1 tablet with food Orally Twice a day , Medication List reviewed and reconciled with the patient * Allergies: V arenicline. Objective: * Vitals: W t:247.2, Temp:97.8, BP:130/80, HR:83, O2 Sat:98% on RA, Nurse:JENN, Ht: 71, Repeat BP:130/80, BMI:34.47. * Examination: G eneral Examination: General Appearance: N AD. H EENT: u nremarkable.?Oral cavity: n o lesions, mucosa moist and WNL, no erythema. N michael: s upple, no lymphadenopathy. C hest: n ormal shape and expansion. H eart: R SR. L ungs: c lear to auscultation. A bdomen: bowel sounds present, soft and nontender, no organomegaly or masses, no guarding or rigidity. N eurologic Exam: I ntact, gait normal. S kin: n ormal, no rash. P eripheral pulses: n ormal (2+) bilaterally. E xtremities: n o leg edema. Assessment: * Assessment: 1. E ssential hypertension - I10 (Primary) 2 . H yperlipidemia, unspecified hyperlipidemia - E78.5 3 . G astroesophageal reflux disease, esophagitis presence not specified - K21.9 4 . B enign prostatic hyperplasia with lower urinary tract symptoms - N40.1 5 . B ronchospasm - J98.01 6 . T obacco use disorder - F17.200 Plan: * Treatment: Value Reference Range A /G Ratio 1.6 1.1-2.5 - * A lbumin 4.8 3.5-5.3 - g/dL * A lkaline Phosphatase 78 40-129 - IU/L * A LT (SGPT) 35 <5-55 - IU/L * A ST (SGOT) 9 <5-46 - IU/L * B ilirubin, Total 0.6 <0.2-1.2 - mg/dL * B UN 13 8-23 - mg/dL * C alcium 10.0 8.6-10.4 - mg/dL * C hloride 97 97-108 - mmol/L * C O2 27 22-32 - mmol/L * C reatinine 1.13 0.70-1.30 - mg/dL * G lucose 88 65-99 - mg/dL * P otassium 4.8 3.5-5.3 - mmol/L * S odium 139 135-145 - mmol/L * P rotein 7.8 6.0-8.3 - g/dL * e GFR by Creatinine 73 >59 - mL/min/1.73m2 * Yovana Martin 07/17/2024 2 :00:55 PM > see TE ?LAB: P-TSH reflex to FT4 (Collection Date & Time - 07/14/2024 09:23 AM)* Value Reference Range T SH reflex to FT4 2.32 0.43-5.25 - mU/L * Yovana Martin 07/17/2024 2 :00:55 PM > see TE ?LAB: CBC Venipuncture (in house) (Collection Date & Time - 07/14/2024)* Value Reference Range w bc 9.4 3.5 - 10 * l ymph 30.4 15 - 50 * m id 7.6 2 - 15 * g ran 62.0 35 - 80 * r bc 5.32 3.5 - 5.5 * h gb 15.9 11.5 - 16.5 * h ct 47.1 35 - 55 * m cv 88.4 75 - 100 * m ch 29.8 25 - 35 * m chc 33.7 31 - 38 * p latlet 182 100 - 400 * Shabnam Rob 07/14/2024 10:3 5:19 AM >Yovana Martin 07/14/2024 12:21:03 PM > 2.?Hyperlipidemia, unspecified hyperlipidemia? Refill Rosuvastatin Calcium Tablet, 10 MG, 1 tablet, Orally, Once a day, 90 days, 90, Refills 1. ?LAB: P-Lipid Panel (Collection Date & Time - 07/14/2024 09:23 AM)* Value Reference Range C holesterol / HDL Ratio 4.66 0.00-4.99 - Ratio * C holesterol 191 <200 - mg/dL * H DL Cholesterol 41 >39 - mg/dL * L DL Cholesterol (Calculation) 108 <130 - mg/d L * L DL/HDL Ratio 2.6 <3.3 - Ratio * N on-HDL Cholesterol 150 H <130 - mg/dL * T riglycerides 210 H <150 - mg/dL * Yovana Martin 07/17/2024 2 :00:55 PM > see TE 3.?Gastroesophageal reflux disease, esophagitis presence not specified? Refill Esomeprazole Magnesium Capsule Delayed Release, 40 mg, 1 capsule, Orally, twice a day, 90 days, 180, Refills 1.??4.?Benign prostatic hyperplasia with lower urinary tract symptoms? Refill Tamsulosin HCl Capsule, 0.4 mg, 2 capsules, Orally, Once a day, 90 days, 180, Refills 1. ?LAB: P-PSA (Collection Date & Time - 07/14/2024 09:23 AM)* Value Reference Range P SA 2.39 <4.00 - ng/mL * Yovana Martin 07/17/2024 2 :00:55 PM > see TE 5.?Bronchospasm? Refill Albuterol Sulfate HFA Aerosol Solution, 108 (90 Base) MCG/ACT, 1-2 puffs as needed, Inhalation, every 4 hrs, prn, 1, Refills 5.??6.?Tobacco use disorder?Imaging: CT SCAN : CHEST, LUNG CANCER SCREENING LOW DOSE* Yovana Martin 07/14/2024 1 1:26:30 AM >Emily Dao 07/14/2024 11:29:46 AM > no auth required; CPT code 17375; faxed to [facility] Deisy Austin 07/14/2024 1:46:05 PM > 08/29/24 @9:30 * Procedure Codes: 9 4760 PULSE OX, G2211 Complex e/[place], [address] CBC WITH AUTO DIFF, 27050 VENIPUNCT, ROUTINE* * Follow Up: v ia phone to report test results * Images: Billing Information: * Visit Code: 60304 Office Visit, Est Pt., Level 4. * Procedure Codes: 37647 PULSE OX. G2211 Complex e/[place]. [address] CBC WITH AUTO DIFF. 34701 VENIPUNCT, ROUTINE*. * Electronic signature of SHIMA Fonseca on 04/27/2025 at 01:55 PM EDT Sign off status: Pending * Provider: SHIMA Diaz Date: 1 09/14/2023 Generated for Prudencioi ng/Faadeg/eTransmitting on: 01:55 PM EDT History and Physical Notes * HPI (History of Present Illness) Category Sub-Category Detail Notes Category Not es HPI Patient is here today for Pt is here today for a 6 month check up with fasting labs. Pt sts he is doing well and has no concerns or complaints at this time Examination Category Sub-Category Detail Notes Category Not es General Examination HEENT: unremarkable Heart: RSR Lungs: clear to auscultatio n Abdomen: bowel sounds present , soft and nontender, no organomegaly or masses, no guarding or rigidity Extremities: no leg edema General Appearance: NAD Skin: normal, no rash Neurologic Exam: Intact, gait normal Neck: supple, no lymphaden opathy Oral cavity: no lesions, mucosa m oist and WNL, no erythema Peripheral pulses: normal (2+) bilatera lly Chest: normal shape and exp ansion
--- OUTSIDE RECORDS SUMMARY | 2025-04-24 06:45 | XMS_ITS ---
Author Organization [facility] Address [address] [place], [place] [id number] Care Team Providers Care Weight Loss Physician Name Role Phone Elva Bettsian Primary Care Provider Allergies Allergen (clinical drug ingredient) Drug/Non Drug Allergy documented on EMR Reaction Allergy Type Onset Date Status varenicline Varenicline Unknown Drug Allergy Act raiza Results Component Value Reference Range Notes CBC Venipuncture (in house) Reviewed date:04/24/2025 02:59:11 PM Interpretation: Performing Lab: Notes/Report: wbc 9.1 3.5 - 10 lymph 31.1% 15 - 50 mid 7.2% 2 - 15 gran 61.7% 35 - 80 rbc 5.15 3.5 - 5.5 hgb 15.8 11.5 - 16.5 hct 46.2 35 - 55 mcv 89.7 75 - 100 mch 30.6 25 - 35 mchc 34.2 31 - 38 platlet 216 100 - 400 P-Comprehensive Metabolic Pa destin (CMP) Reviewed date:04/25/2025 12:09:45 PM Interpretation:Normal Performing Lab: Notes/Report: Test performed by [facility] [address] [place] [address] , [address], [place] [address] Ayo Jc MD, Supervisor Grounds CLIA: [id number] Sodium 137 135-145 mmol/L Potassium 5.0 3.5-5.3 mmol/L Chloride 99 97-108 mmol/L CO2 27 20-32 mmol/L Glucose 90 65-99 mg/dL BUN 16 8-23 mg/dL Creatinine 1.14 0.70-1.30 mg/dL Calcium 10.0 8.6-10.4 mg/dL eGFR by Creatinine 72 >59 mL/min/1.73m2 Protein 7.5 6.0-8.3 g/dL Albumin 4.9 3.5-5.3 g/dL Alkaline Phosphatase 71 40-129 IU/L ALT (SGPT) 28 <5-55 IU/L AST (SGOT) 12 <5-46 IU/L Bilirubin, Total 0.9 <0.2-1.2 mg/dL A/G Ratio 1.9 1.1-2.5 P-Lipid Panel Reviewed date:04/25/2025 12:09:45 PM Interpretation:Trigs 162, HDL 36, Non-HDL 136 Performing Lab: Notes/Report: Test performed by [facility], [address] , [address] , [place] [address] Ayo Jc MD, Supervisor Grounds CLIA: [id number] Cholesterol 172 <200 mg/dL Triglycerides 162 <150 mg/dL HDL Cholesterol 36 >39 mg/dL Cholesterol / HDL Ratio 4.78 0.00-4.99 Ratio Non-HDL Cholesterol 136 <130 mg/dL LDL Cholesterol (Calculation) 104 <130 mg/dL LDL Cholesterol Levels* Less than 100 mg/dL Optimal 100 to 129 mg/dL Near Optimal/ Above Optimal 130 to 159 mg/dL Borderline High 160 to 189 mg/dL High 190 mg/dL and above Very High * Categories as recommended by the 2004 ATPIII guidelines LDL/HDL Ratio 2.9 <3.3 Ratio LDL Cholesterol Patient History Test Date: 01/17/2024 LDL Results: 134 Units: mg/dL % Change: -17% Test Date: 07/14/2024 LDL Results: 108 Units: mg/dL % Change: -19% Test Date: 04/24/2025 LDL Results: 104 Units: mg/dL % Change: -3% P-Phosphorus Reviewed date:04/25/2025 12:09:45 PM Interpretation:Normal Performing Lab: Notes/Report: Test performed by [facility] [address] [place], [place] [address] , [address], [place] [address] Ayo Jc MD, Supervisor Grounds CLIA: [id number] Phosphorus 3.8 2.5-4.5 mg/dL P-TSH reflex to FT4 Reviewed date:04/25/2025 12:09:45 PM Interpretation:Normal Performing Lab: Notes/Report: Test performed by [facility] [address] [place], [place] [address] , [address], [place] [address] Ayo Jc MD, Supervisor Grounds CLIA: [id number] TSH reflex to FT4 2.16 0.43-5.25 mU/L P-Microalbumin/Creatinine, R andom Urine Sample Reviewed date:04/25/2025 12:09:45 PM Interpretation:Alb/Creat 128 Performing Lab: Notes/Report: Test performed by [facility] [address] [facility] , [address], [place] [address] Ayo Jc MD, Supervisor Grounds CLIA: [id number] Albumin/Creatinine Ratio, Urine 128 0-30 ug/m g Microalbumin, Urine, Random 3.1 Creatinine, Urine 24.3 REASON FOR VISIT check up Medications Medication SIG (Take, Route, Frequency, Duration) Notes Start Date End Date Status Esomeprazole Magnesium 40 mg 1 capsule Orally twice a day; Duration: 14 days Active Albuterol Sulfate HFA 108 (90 Base) MCG/ACT 1-2 puffs as needed Inhalation every 4 hrs, prn Active CPAP SUPPLIES as directed 11/30/2022 Act raiza Fish Oil 1000 MG 1 capsule Orally Onc e a day; Duration: 30 day(s) Active Furosemide 20 MG 1 tablet Orally Once a day; Duration: 30 days 04/24/2025 Active Rosuvastatin Calcium 10 MG 1 tablet Oral ly Once a day; Duration: 90 days Active Carvedilol 6.25 MG 1 tablet with food O rally Twice a day; Duration: 90 days Active Tamsulosin HCl 0.4 mg 2 capsules Orally Once a day; Duration: 90 days Active Sildenafil Citrate 50 MG 1 tab(s) orally once a day as needed Active Garlic 1 TAB PO THREE TIMES A DAY Active Aspir-Low 81 MG 1 tab(s) orally once a day Active CBD OIL ORALLY Active Vitamin D3 25 MCG (1000 UT) 1 tab(s) ora lly once a day Active Senna Plus 8.6-50 MG 1 tablet as needed Orally Once a day Active CareTouch CPAP & BIPAP Hose DIRECTED 12/11/2011 Active Immunizations Vaccine Route Administration Date Status Comme nts Fluzone Quad (6months&older) IM Intramuscular 04/24/2025 Administered Prevnar (PCV20) IM Intramuscular 04/24/2025 Administered Vital Signs Blood pressure systolic 130 mm Hg 04/24/20 25 Blood pressure diastolic 80 mm Hg 025 Heart Rate 82 /min 04/24/2025 Height 71 in 04/24/2025 Weight 240.6 lbs 04/24/2025 BMI 33.55 kg/m2 04/24/2025 Encounters Encounter Location Date Provider Diagnosis [facility] [address] [place] [id number] 04/24/2025 Anton Betts Essential hypertensi on I10 ; Hyperlipidemia, unspecified hyperlipidemia E78.5 ; Gastroesophageal reflux disease, esophagitis presence not specified K21.9 ; Peripheral edema R60.0 ; Renal insufficiency N28.9 and Encounter for immunization Z23 Assessments Encounter Date Diagnosis (ICD Code) Assessment Notes Treatment Notes Treatment Clinical Notes Section Notes 04/24/2025 Essential hypertension (ICD-10 - I10) 04/24/2025 Hyperlipidemia, unspecified hyperlipidemia (ICD-10 - E78.5) 04/24/2025 Gastroesophageal reflux disease, esophagitis presence not specified (ICD-10 - K21.9) 04/24/2025 Peripheral edema (ICD-10 - R60.0) 04/24/2025 Renal insufficiency (ICD-10 - N28.9) 04/24/2025 Encounter for immunization (ICD-10 - Z23) Plan Of Treatment Medication Medication Name Sig Start Date Stop Date Notes Furosemide 20 MG 1 tablet Orally Once a day; Duration: 30 days 04/24/2025 Pending Test Test Name Order Date Echocardiogram 04/24/2025 Next Appt Details Follow Up: 6 Months, Reason: Provider Name:Anton Whyte ry, 10/22/2025 10:45:00 AM, [address] [facility], [address], [place], [place], [id number], Progress Notes * Chase RIVASDOB: [birth year] (65 yo M)Acc No.[id number]:04/24/2025 Progress Notes Patient: Janis GARCIA Chase Provider: Farhat Betts M.D. :1960 A ge:65 Y S ex:Male Date:04/24/2025 Address:[facility] [address] , [place], [id number] Subjective: * Chief Complaints: * 1 . Check up. * HPI: C ardiology: 65 year old male presents with c/o Leg Edema P t complains of bilateral lower leg swelling. Pt states swelling only happens in the evenings but it is everyday. Pt requesting rx for fluid pill. c/o Blood Pressure Elevated P t here for checkup on hypertension. c/o Hyperlipidemia P t is fasting today. * Medical History: H ypertension, Sleep Apnea, Kidney Donor, Systemic Lupus, Sjogren's Syndrome, Esophageal Reflux, Colon Polyps, Low Back Pain, s/p MRI 2018 and pain management evaluation, Sciatica, Lumbar Disc Disease, Tobacco Abuse, BPH, Tuna Fish Allergy. * Surgical History: K idney Donation 2004, Colonoscopy 12/2010, EGD 06/2017, Colonoscopy 10/2017, Bladder Stent- Dr. Jacobsen, [facility] 07/14/2018, Spinal Fusion [id number] 12/2020, Lumbar fusion L4-L5 08/2022. * Hospitalization/Major Diagno stic Procedure: D enies Past Hospitalization. * Family History: F ather: alive. M other: , breast cancer. S iblings: alive. 1 brother(s) , 1 sister(s) - healthy. 4 son(s) , 2 daughter(s) - healthy. . * Social History: C URRENT TOBACCO USE: Yes S moking Status: P atient does smoke, p acks per day:?1, n umber of cigarettes per day: 2 0, S rehan age of: 1 8, S moking preference: c igarettes. C affeine: yes, frequency:2 pots of coffee [...] needed Orally Once a day , Taking Sildenafil Citrate 50 MG Tablet 1 tab(s) orally once a day as needed , Taking Tamsulosin HCl 0.4 mg Capsule 2 capsules Orally Once a day , Taking Rosuvastatin Calcium 10 MG Tablet 1 tablet Orally Once a day , Taking Carvedilol 6.25 MG Tablet 1 tablet with food Orally Twice a day , Taking Albuterol Sulfate HFA 108 (90 Base) MCG/ACT Aerosol Solution 1-2 puffs as needed Inhalation every 4 hrs, prn , Taking CPAP SUPPLIES as directed , Taking Esomeprazole Magnesium 40 mg Capsule Delayed Release 1 capsule Orally twice a day , Discontinued Carvedilol 6.25 MG Tablet 1 tablet with food Orally Twice a day , Medication List reviewed and reconciled with the patient * Allergies: V arenicline. Objective: * Vitals: W t: 240.6, Temp: 98.0, BP: 130/80, HR: 82, Nurse: mara, Ht: 71, BMI:33.55. Assessment: * Assessment: 1. E ssential hypertension - I10 (Primary) 2 . H yperlipidemia, unspecified hyperlipidemia - E78.5 3 . G astroesophageal reflux disease, esophagitis presence not specified - K21.9 4 . P eripheral edema - R60.0 5 . R enal insufficiency - N28.9 6 . E ncounter for immunization - Z23 ? Plan: * Treatment: Value Reference Range A /G Ratio 1.9 1.1-2.5 - * A lbumin 4.9 3.5-5.3 - g/dL * A lkaline Phosphatase 71 40-129 - IU/L * A LT (SGPT) 28 <5-55 - IU/L * A ST (SGOT) 12 <5-46 - IU/L * B ilirubin, Total 0.9 <0.2-1.2 - mg/dL * B UN 16 8-23 - mg/dL * C alcium 10.0 8.6-10.4 - mg/dL * C hloride 99 97-108 - mmol/L * C O2 27 20-32 - mmol/L * C reatinine 1.14 0.70-1.30 - mg/dL * G lucose 90 65-99 - mg/dL * P otassium 5.0 3.5-5.3 - mmol/L * S odium 137 135-145 - mmol/L * P rotein 7.5 6.0-8.3 - g/dL * e GFR by Creatinine 72 >59 - mL/min/1.73m2 * Keesha Coreas 04/25/2025 12: 09:34 PM EDT > See phone encounter ?LAB: P-Microalbumin/Creatinine, Random Urine Sample (Collection Date & Time - 04/24/2025 10:04 AM)?Alb/Creat 128* Value Reference Range A lbumin/Creatinine Ratio, Urine 128 H 0-30 - ug /mg * C reatinine, Urine 24.3 - mg/dL * M icroalbumin, Urine, Random 3.1 - mg/dL * Keesha Coreas 04/25/2025 12: 09:34 PM EDT > See phone encounter ?Imaging: Echocardiogram* Emily Dao 04/24/2025 11:0 3:41 AM EDT > no auth required; CPT code 54849; faxed to [facility] Scheduling 2.?Hyperlipidemia, unspecified hyperlipidemia?LAB: P-Comprehensive Metabolic Panel (CMP) (Collection Date & Time - 04/24/2025 10:04 AM)?Normal* Value Reference Range A /G Ratio 1.9 1.1-2.5 - * A lbumin 4.9 3.5-5.3 - g/dL * A lkaline Phosphatase 71 40-129 - IU/L * A LT (SGPT) 28 <5-55 - IU/L * A ST (SGOT) 12 <5-46 - IU/L * B ilirubin, Total 0.9 <0.2-1.2 - mg/dL * B UN 16 8-23 - mg/dL * C alcium 10.0 8.6-10.4 - mg/dL * C hloride 99 97-108 - mmol/L * C O2 27 20-32 - mmol/L * C reatinine 1.14 0.70-1.30 - mg/dL * G lucose 90 65-99 - mg/dL * P otassium 5.0 3.5-5.3 - mmol/L * S odium 137 135-145 - mmol/L * P rotein 7.5 6.0-8.3 - g/dL * e GFR by Creatinine 72 >59 - mL/min/1.73m2 * Keesha Coreas 04/25/2025 12: 09:34 PM EDT > See phone encounter ?LAB: P-Lipid Panel (Collection Date & Time - 04/24/2025 10:04 AM)?Trigs 162, HDL 36, Non-HDL 136* Value Reference Range C holesterol / HDL Ratio 4.78 0.00-4.99 - Ratio * C holesterol 172 <200 - mg/dL * H DL Cholesterol 36 L >39 - mg/dL * L DL Cholesterol (Calculation) 104 <130 - mg/d L * L DL/HDL Ratio 2.9 <3.3 - Ratio * N on-HDL Cholesterol 136 H <130 - mg/dL * T riglycerides 162 H <150 - mg/dL * Keesha Coreas 04/25/2025 12: 09:34 PM EDT > See phone encounter ?LAB: P-TSH reflex to FT4 (Collection Date & Time - 04/24/2025 10:04 AM)? Normal* Value Reference Range T SH reflex to FT4 2.16 0.43-5.25 - mU/L * Keesha Coreas 04/25/2025 12: 09:34 PM EDT > See phone encounter 3.?Peripheral edema? Start Furosemide Tablet, 20 MG, 1 tablet, Orally, Once a day, 30 days, 30 Tablet, Refills 0.?LAB: CBC Venipuncture (in house) (Collection Date & Time - 04/24/2025)* Value Reference Range w bc 9.1 3.5 - 10 * l ymph 31.1% 15 - 50 * m id 7.2% 2 - 15 * g ran 61.7% 35 - 80 * r bc 5.15 3.5 - 5.5 * h gb 15.8 11.5 - 16.5 * h ct 46.2 35 - 55 * m cv 89.7 75 - 100 * m ch 30.6 25 - 35 * m chc 34.2 31 - 38 * p latlet 216 100 - 400 * Jessica Wolf 04/24/2025 11:38: 21 AM EDT >Anton Betts 04/24/2025 02:59:07 PM EDT > ?Imaging: Echocardiogram* Emily Dao 04/24/2025 11:0 3:41 AM EDT > no auth required; CPT code 45434; faxed to [facility] Scheduling 4.?Renal insufficiency?LAB: P-Phosphorus (Collection Date & Time - 04/24/2025 10:04 AM)?Normal* Value Reference Range P hosphorus 3.8 2.5-4.5 - mg/dL * Keesha Coreas 04/25/2025 12: 09:34 PM EDT > See phone encounter * Immunizations: Fluzone Quad (6months&older) : 0.5 mL (Route: Intramuscular) given by Jessica Wolf on Right Deltoid (Encounter for immunization) Prevnar (PCV20) : 0.5 mL (Route: Intramuscular) given by Jessica Wolf on Right Deltoid (Encounter for immunization) * Procedure Codes: 8 5025 CBC WITH AUTO DIFF * Follow Up: 6 Months * Images: Billing Information: * Visit Code: 70392 Office Visit, Est Pt., Level 4. * Procedure Codes: 00445 CBC WITH AUTO DIFF. * Electronic signature of Jazmyne Betts MD on 04/27/2025 at 01:56 PM EDT Sign off status: Pending * Provider: Farhat Betts M.D. Date: 0 04/24/2025 Generated for Chyna cameron/Sinan/Aristidesitting on: 1 01:56 PM EDT History and Physical Notes * HPI (History of Present Illness) Category Sub-Category Detail Notes Category Not es Cardiology Leg Edema Pt complains of bilateral lower leg swelling. Pt states swelling only happens in the evenings but it is everyday. Pt requesting rx for fluid pill Blood Pressure Elevated Pt [facility] on hypertension Hyperlipidemia Pt is fasting today
--- NOTE | 2025-04-27 | CA_ITS ---
APPROVED REPORT EXAM: Comprehensive 2D, Doppler, and color-flow Echocardiogram Last Pattern Grader: Soheila Liao CRT Ht: 6 ft 0 in Wt: 244lbs BSA: 2.32 BP: 137/94 mmHg Indications: Peripheral Edema, Hyperlipidemia, Hypertension/HDD, smoker 2D Dimensions LA Volume 29.10 mL LA Volume Index 12.30 mL/m2 (M/F) 16-34 M-Mode Dimensions RVDd 3.65 cm (0.9-2.6) LA Diam 3.07 cm (1.9-4.0) LVDd 3.82 cm (3.5-5.7) LVDs 2.76 cm (3.5-5.7) IVSd 1.83 cm (0.6-1.1) PWd 1.27 cm (0.6-1.1) EF (Teich) 54.50% FS 27.70% EDV (Teich) 62.70 mL ESV (Teich) 28.50 mL LV Diastology E Decel Time 247 (160-240 msec) E/A Ratio 0.75 MED A' 12.10 cm/s LAT A' 12.20 cm/s Aortic Valve AO Peak GR. 6.60 mmHg Mitral Valve MV E Max Himanshu. 75.0 (40-130 cm/s) MV A Velocity 101.0 (40-130 cm/s) E/A Ratio 0.75 MV PHT 72.0 ms Pulmonary Valve PV Peak Velocity 135.0 (50-150 cm/s) Tricuspid Valve TR P. Velocity 226.00 cm/s RAP Estimate 10.00 mmHg RVSP 30.40 mmHg Left Ventricle The left ventricle is normal size. Left ventricular systolic function is normal. The left ventricular ejection fraction is within the normal range. There is normal left ventricular wall thickness. There is normal LV segmental wall motion. The left ventricular diastolic function is indeterminate. LVEF is 55%. Right Ventricle The right ventricle is mildly dilated. The right ventricular systolic function is normal. Atria The left atrium size is normal. The right atrium is mildly dilated. The interatrial shunt is not well visualized. Aortic Valve The aortic valve is mildly thickened. There is no hemodynamically significant aortic valvular stenosis. No aortic regurgitation is present. Mitral Valve The mitral valve is normal in structure. No evidence of mitral valve stenosis. Trace mitral regurgitation is present. Tricuspid Valve The tricuspid valve leaflets are thin and pliable. Mild tricuspid regurgitation. RVSP is 20-25 mmHg. Pulmonic Valve The pulmonary valve is grossly normal in structure. Trace pulmonic valve regurgitation is present. Great Vessels The aortic root is normal in size. IVC is normal in size and collapses >50% with inspiration. Pericardium There is no pericardial effusion. Other Information Study Quality: Technically Difficult Conclusion Normal biventricular systolic function. Mild RV dilation. Mild RA dilation. Mild TR. Electronically signed by : Tamiko Thacker MD 04/29/2025 02:00:55
--- OUTSIDE RECORDS SUMMARY | 2025-04-27 13:56 | XMS_ITS | Clinical Summary ---
Author Organization [facility] Address [address] [place] [address] Care Team Providers Care Sql Server Architect Name Role Phone Anton Betts MD Primary Care Provider + [phone] Allergies Active Allergy Reactions Criticality Noted Date Comments Varenicline Palpitations Low 06/10/2018 Fish Oil Palpitations Low 06/14/2018 Tuna Oil Palpitations Low 06/14/2018 Medications aspirin 81 MG EC tablet Take 1 tablet by mouth Daily. Active esomeprazole (nexIUM) 40 MG capsule Take 1 capsule by mouth 2 (Two) Times a Day. Active carvedilol (COREG) 6.25 MG tablet Take 1 tablet by mouth 2 (Two) Times a Day. 06/15/20 Active simvastatin (ZOCOR) 5 MG tablet Take 1 tablet by mouth Daily. 06/15/20 Active tamsulosin (FLOMAX) 0.4 MG capsule 24 hr capsule Take 1 capsule by mouth Daily. 06/15/20 Active valsartan-hydroch lorothiazide (DIOVAN-HCT) 160-12.5 MG per tablet Take 1 tablet by mouth Daily With Lunch. 06/15/20 Active simethicone (MYLICON,GAS-X) 180 MG capsule Take 1 capsule by mouth Every 6 (Six) Hours As Needed for Flatulence. Active gabapentin (NEURONTIN) 400 MG capsule Take 1 capsule by mouth Daily With Lunch. At Noon Active gabapentin (NEURONTIN) 800 MG tablet Take 1 tablet by mouth 2 (Two) Times a Day. AM & HS Active albuterol sulfate HFA 108 (90 Base) MCG/ACT inhaler INHALE TWO PUFFS BY MOUTH FOUR TIMES DAILY NEEDED --SHAKE WELL BEFORE USE-- 08/11/19 Active gabapentin (NEURONTIN) 600 MG tablet TAKE ONE TABLET BY MOUTH THREE TIMES DAILY MAY CAUSE DROWSINESS 08/10/19 Active Xmxqp-A-Avxrrbmwo dase (BEANO PO) Take by mouth As Needed. Active HYDROcodone-aceta minophen (NORCO) 5-325 MG per tabletIndications :Lumbar radiculopathy Take 1 tablet by mouth Every 4 (Four) Hours As Needed for Moderate Pain. 25 tablet 09/09/19 Active diazePAM (VALIUM) 5 MG tabletIndications :Lumbar radiculopathy Take 1 tablet by mouth Every 8 (Eight) Hours As Needed for Muscle Spasms. 20 tablet 09/09/19 Active sennosides-docusa te (senna-docusate sodium) 8.6-50 MG per tablet Take 1 tablet by mouth Daily. Take while using hydrocodone to prevent constipation 30 tablet 09/09/19 Active pregabalin (LYRICA) 75 MG capsuleIndication s:Lumbar radiculopathy,DDD (degenerative disc disease), lumbar,H/O Spinal surgery Take 1 capsule by mouth 2 (Two) Times a Day. 60 capsule 1 10/16/19 Active Active Problems Problem Noted Date Diagnosed Date DDD (degenerative disc disease), lumbar 10/14/19 H/O Spinal surgery 10/13/2022 BPH (benign prostatic hyperplasia) 06/14/2018 Resolved Problems Problem Noted Date Diagnosed Date Resolved Date Lumbar radiculopathy 07/07/2022 023 Immunizations Immunization Administration Dates Next Due COVID-19 (MODERNA) 1st,2nd,3rd Dose Monovalent 1 Family History Medical History Relation Name Comments COPD Brother Hypertension Brother Hypertension Father Cancer Mother COPD Sister Hypertension Sister Relation Name Status Comments Brother Father Mother Sister Social History Tobacco Use Types Packs/Day Years Used Date Smoking Tobacco: Every Day Cigarettes 2 44.8 Started: 1980 Smokeless Tobacco: Former Tobacco Cessation:Ready to Q uit: Not Asked; Counseling Given: Not Answered Comments:Tried chewing tobacco and snuff years ago Alcohol Use Standard Drinks/Week Comments No 0 (1 standard drink = 0.6 oz pur e alcohol) AUDIT-C Answer Date Recorded Frequency of Alcohol Consumption Never 06/10/2018 Average Number of Drinks Not on file 018 Frequency of Binge Drinking Not on file 05/26 Abuse Screen Answer Date Recorded Unsafe at Home or Work/School Not on file Feels Threatened by Someone? Not on file Does Anyone Keep You from Co ntacting Others or Doint Things Outside the Home? Not on file 10/08/2023 Physical Sign of Abuse Present Not on file 0 10/08/2023 Housing Stability Answer Date Recorded Current Living Arrangements Not on file 09/23 Potentially Unsafe Housing Conditions Not on lisa e 10/08/2023 Family and Community Support Answer Hiro e Recorded Help with Day-to-Day Activities Not on file 05/03/2023 Lonely or Isolated Not on file 05/03/2023 Employment Answer Date Recorded Do you want help finding or keeping work or a alivia b? Not on file 05/03/2023 Disabilities Answer Date Recorded Concentrating, Remembering, or Making Decisions Difficulty Not on file 10/08/2023 Doing Errands Independently Difficulty Not on fi le 10/08/2023 Education Answer Date Recorded Help with school or training? Not on file Preferred Language Not on file 10/08/2023 Sex and Gender Information Value Date Recorded Sex Assigned at Not on file Legal Sex Male 2:49 PM EDT Gender Identity Not on file Sexual Orientation Not on file Last Filed Vital Signs Vital Sign Reading Time Taken Comments Blood Pressure 136/90 10/08/2022 9:36 AM EDT Pulse 79 09/09/2022 11:30 AM EST Temperature 36.4 C (97.6 F) 10/08/2022 9:36 AM EDT Respiratory Rate 15 09/09/2022 11:00 AM EST Oxygen Saturation 100% 09/09/2022 11:30 AM EST Inhaled Oxygen Concentration - - Weight 114 kg (251 lb) 10/08/2022 9:36 AM EDT Height 177.8 cm (5' 10 ) 10/08/2022 9:36 AM EDT Body Mass Index 36.01 10/08/2022 9:36 AM EDT Plan of Treatment Health Maintenance Due Date Last Done Comments Pneumococcal Vaccine 50+ (1 of 2 - PCV) 1980 TDAP/TD VACCINES (2 - Tdap) 02/21/2006 02/22/1996 COLOGUARD 2006 COLON CANCER SCREENING 5 YEA R SIGMOIDOSCOPY 2006 COLONOSCOPY [address]CER SCREENING [address] COLONOGRAPHY 2006 FECAL OCCULT BLOOD TEST 2006 FIT Testing (1 year) 2006 ZOSTER VACCINE (1 of 2) 2011 ANNUAL WELLNESS VISIT 12/31/2017 INFLUENZA VACCINE 02/23/2025 04/20/2022, , 05/09/2019, Additional history exists HEPATITIS C SCREENING Completed 07/12/2023 Medical Devices Implanted Type Area Central Supply Clerk Device Identifier Shelf Expiration Date Model / Serial / Lot Hemost Abs Surgifoam [id number] 8x12 10mm - [id number] Implanted:Qty : 1 on 09/09/2022 by Elder Bower MD at [facility] Implant N/A: Spine Lumbar [employer] 1974 / / Kt Seal Hemos Abs Floseal Matrx Fast/Prep 10ml - [id number] Implanted:Qty : 1 on 09/09/2022 by Elder Bower MD at [facility] Implant N/A: Spine Lumbar [facility] [id number] / / Insurance Advance Directives Documents on File Type Date Recorded Patient Quality Control Associate Expl anation LIVING WILL - SCAN 06/14/2018 7:52 AM LISA ING WILL 06/14/2018 * CPR (Attempt to Resuscitate) (Latest Code Status on File) Date Activated Date Inactivated Comments 06/14/2018 11:40 AM 06/15/2018 1:31 PM Question Answer Comments Code Status (Patient has no pulse and is not breathing): CPR (Attempt to Resuscitate) Medical Interventions (Patie nt has pulse or is breathing): Full Healthcare Agents on File Name Relationship Healthcare Agent Relationshi p Communication Viviana Regalado Daughter Health Care Surrogate Esvin Santos Son First Alternat e Health Care Surrogate Care Teams Sql Server Architect Relationship Specialty Start Date End Date Anton Betts MD [address] [place] [address] PCP - General Family Medicine 06/10/18
--- OUTSIDE RECORDS SUMMARY | 2025-04-27 13:56 | XMS_ITS | Patient Health Record ---
Author Organization [facility] Address [address] [place], [place] [id number] Care Team Providers Care Clinic Director Name Role Phone Anton Betts Primary Care Provider Yovana Martin Unavailable [phone] Allergies Allergen (clinical drug ingredient) Drug/Non Drug [...] Interpretation: Performing Lab: Notes/Report: Test performed by [employer] [employer] [facility] , [address], [place] [address] Ayo Jc MD, Window Machine Operator CLIA: [id number] Sodium 139 135-145 mmol/L Potassium 4.8 3.5-5.3 [...] Interpretation: Performing Lab: Notes/Report: Test performed by [facility], [address] , [address], [place] [address] Ayo Jc MD, Window Machine Operator CLIA: [id number] Cholesterol 191 <200 mg/dL Triglycerides 210 <150 [...] Interpretation: Performing Lab: Notes/Report: Test performed by [facility] [address] [place], [place] [address] Elis[place] [address] Ayo Jc MD, Window Machine Operator CLIA: [id number] PSA 2.39 <4.00 ng/mL Please note this is an ultrasensitive PSA assay with a lower limit of detection of 0.014 ng/mL. This test is performed by the Matthew ECLIA methodology. Values obtained with different assay methods or kits cannot be directly compared. P-TSH reflex to FT4 Reviewed date:07/17/2024 02:01:02 PM Interpretation: Performing Lab: Notes/Report: Test performed by [facility] [address] [place], [place] [address] [place] [address] Ayo Jc MD, Window Machine Operator CLIA: [id number] TSH reflex to FT4 2.32 0.43-5.25 mU/L CBC Venipuncture (in house) Reviewed date:04/24/2025 02:59:11 [...] Interpretation:Normal Performing Lab: Notes/Report: Test performed by [facility] [address] [place] [address] , [address], [place] [address] Ayo Jc MD, Window Machine Operator CLIA: [id number] Sodium 137 135-145 mmol/L Potassium 5.0 3.5-5.3 [...] 136 Performing Lab: Notes/Report: Test performed by [facility] [address] [place] [address] , [address], [place] [address] Ayo Jc MD, Window Machine Operator CLIA: [id number] Cholesterol 172 <200 mg/dL Triglycerides 162 <150 [...] Interpretation:Normal Performing Lab: Notes/Report: Test performed by [facility] [address] [place] [address] , [address], [place] [address] Ayo Jc MD, Window Machine Operator CLIA: [id number] Phosphorus 3.8 2.5-4.5 mg/dL P-TSH reflex to FT4 Reviewed date:04/25/2025 12:09:45 PM Interpretation:Normal Performing Lab: Notes/Report: [facility] [address] , [address], [place] [address] Ayo Jc MD, Window Machine Operator CLIA: [id number] TSH reflex to FT4 2.16 0.43-5.25 mU/L P-Microalbumin/Creatinine, R andom Urine Sample Reviewed date:04/25/2025 12:09:45 PM Interpretation:Alb/Creat 128 Performing Lab: Notes/Report: Test performed by [facility] [address] , [address], [place] [address] Ayo Jc MD, Window Machine Operator CLIA: [id number] Albumin/Creatinine Ratio, Urine 128 0-30 ug/mg Microalbumin, Urine, Random 3.1 Creatinine, Urine 24.3 Medications Medication SIG (Take, Route, Frequency, Duration) Notes Start Date End Date Status [employer]Touch CPAP & BIPAP Hose DIRECTED 12/11/2011 Active Albuterol Sulfate HFA 108 (90 Base) MCG/ACT 1-2 puffs as needed Inhalation every 4 hrs, prn Active Vitamin D3 25 MCG (1000 UT) 1 tab(s) ora lly once a day Active CPAP SUPPLIES as directed 11/30/2022 Act raiza Rosuvastatin Calcium 10 MG 1 tablet Oral ly Once a day; Duration: 90 days Active Fish Oil 1000 MG 1 capsule Orally Onc e a day; Duration: 30 day(s) Active Carvedilol 6.25 MG 1 tablet with food O rally Twice a day; Duration: 90 days Active Tamsulosin HCl 0.4 mg 2 capsules Orally Once a day; Duration: 90 days Active Senna Plus 8.6-50 MG 1 tablet as needed Orally Once a day Active Furosemide 20 MG 1 tablet Orally Once a day; Duration: 30 days 04/24/2025 Active Sildenafil Citrate 50 MG 1 tab(s) orally once a day as needed Active Garlic 1 TAB PO THREE TIMES A DAY Active Aspir-Low 81 MG 1 tab(s) orally once a day Active Esomeprazole Magnesium 40 mg 1 capsule Orally twice a day; Duration: 14 days Active CBD OIL ORALLY Active Immunizations Vaccine Route Administration Date Status Comme nts COVID 19 Moderna Unknown 05/07/2021 Administered DT, 7 YEARS OR OLDER Unknown 02/22/1996 Administered Fluzone Quad (6months&older) IM Intramuscular 05/16/2018 Administered Given by MP Fluzone Quad (6months&older) IM Intramuscular 05/07/2020 Administered Fluzone Quad (6months&older) IM Intramuscular 04/24/2021 Administered Fluzone Quad (6months&older) Unknown 04/20/2022 Administered Fluzone Quad (6months&older) IM Intramuscular 07/06/2023 Administered Fluzone Quad (6months&older) IM Intramuscular 04/24/2025 Administered PNEUMOVAX 23 VACCINE IM Intramuscular 05/07/2020 Administe red Prevnar (PCV20) IM Intramuscular 04/24/2025 Administered xFlu shot-36 months and older IM Intramuscular 05/30/2010 Administered xFluzone (6mos and older)-trivalent IM Intramuscular 05/15/2011 Administered xFluzone Intradermal (18-64yrs)-trivalent ID Intradermal 06/15/2013 Administered Problems Problem Type SNOMED Code ICD Code Onset Dates Problem Status W/U Status Risk Notes Problem Essential hypertension (35794195) Essential hypertension (I10) Active confirmed Problem Arthropathy of lumbar facet joint (004693722) Lumbar facet arthropathy (M47.816) Active confirmed Problem Sciatica (94658273) Lumbago with sciatica, right side (M54.41) Active confirmed Problem Chronic pain (25966607) Other chronic pain (G89.29) Active confirmed Problem Degeneration of lumbar intervertebral disc (03156961) Lumbar degenerative disc disease (M51.36) Active confirmed Problem Hyperlipidemia (28572321) Hyperlipidemia, unspecified hyperlipidemia (E78.5) Active confirmed Problem Renal insufficiency (126820963) Renal insufficiency (N28.9) Active confirmed Problem Displacement of lumbar intervertebral disc without myelopathy (68682348) Bulging lumbar disc (M51.26) Active confirmed Problem Lupus (438824458) Lupus (M32.9) Active confirme d Problem Gastroesophageal reflux disease (094720559) Gastroesophageal reflux disease, esophagitis presence not specified (K21.9) Active confirmed Problem Erectile dysfunction (disorder) (404689218) Erectile dysfunction, unspecified erectile dysfunction type (N52.9) Active confirmed Problem Sleep apnea (81770576) Sleep apnea, unspecified type (G47.30) Active confirmed Problem Tobacco user (508828824) Cigarette nicotine dependence without complication (F17.210) Active confirmed Problem Sciatica (48942608) Acute right- sided low back pain with right-sided sciatica (M54.41) Active confirmed Problem Lower urinary tract symptoms due to benign prostatic hypertrophy (04294497663810) Benign prostatic hyperplasia with lower urinary tract symptoms (N40.1) Active confirmed Problem Tobacco use (523843668) Tobacco use disorder (F17.200) Active confirmed Problem Viral upper respiratory tract infection (172884892) Viral upper respiratory tract infection (J06.9) Active confirmed Vital Signs Heart Rate 82 /min 04/24/2025 Blood pressure diastolic 80 mm Hg 04/24/2025 Height 71 in 04/24/2025 Blood pressure systolic 130 mm Hg 04/24/2025 Weight 240.6 lbs 04/24/2025 BMI 33.55 kg/m2 04/24/2025 Encounters Encounter Location Date Provider Diagnosis [facility] [address] [facility] [address] [facility] [address] [place] [id number] 07/14/2024 Yovana Martin Essential hypertensi on I10 ; Hyperlipidemia, unspecified hyperlipidemia E78.5 ; Gastroesophageal reflux disease, esophagitis presence not specified K21.9 ; Benign prostatic hyperplasia with lower urinary tract symptoms N40.1 ; Bronchospasm J98.01 and Tobacco use disorder F17.200 [facility] [address] [facility] [address] [facility] [address] [place] [id number] 04/24/2025 Anton Leeberry Essential hypertensi on I10 ; Hyperlipidemia, unspecified hyperlipidemia E78.5 ; Gastroesophageal reflux disease, esophagitis presence not specified K21.9 ; Peripheral edema R60.0 ; Renal insufficiency N28.9 and Encounter for immunization Z23 [facility] [address] [place], [place] [id number] 04/13/2025 Anton Leeberry [facility] [address] [place], [place] [id number] 07/17/2024 Yovana Martin [facility] [address] [place], [place] [id number] 01/18/2025 Anton Betts [facility] [address] [place], [place] [id number] 04/25/2025 Anton Betts Assessments Encounter Date Diagnosis (ICD Code) Assessment Notes Treatment Notes Treatment Clinical Notes Section Notes 07/14/2024 Essential hypertension (ICD-10 - I10) 07/14/2024 Hyperlipidemia, unspecified hyperlipidemia (ICD-10 - E78.5) 04/24/2025 Essential hypertension (ICD-10 - I10) 04/24/2025 Hyperlipidemia, unspecified hyperlipidemia (ICD-10 - E78.5) 04/24/2025 Gastroesophageal reflux disease, esophagitis presence not specified (ICD-10 - K21.9) 07/14/2024 Gastroesophageal reflux disease, esophagitis presence not specified (ICD-10 - K21.9) 04/24/2025 Peripheral edema (ICD-10 - R60.0) 07/14/2024 Benign prostatic hyperplasia with lower urinary tract symptoms (ICD-10 - N40.1) 04/24/2025 Renal insufficiency (ICD-10 - N28.9) 07/14/2024 Bronchospasm (ICD-10 - J98.01) 04/24/2025 Encounter for immunization (ICD-10 - Z23) 07/14/2024 Tobacco use disorder (ICD-10 - F17.200) Plan Of Treatment Pending Test Test Name Order Date Echocardiogram 04/24/2025 CT SCAN : CHEST, LUNG CANCER SCREENING L OW DOSE 07/14/2024 Next Appt Details Provider Name:Anton Whyte ry, 10/22/2025 10:45:00 AM, [address], [address], [place], [place], [id number], Insurance Providers Payer Name Payer Address Payer Phone Subscriber Number Group Number Insured Name Patient Relationship to Insured Coverage Start Date Coverage End Date [employer] (MEDICAR E) [address] [address] [place] [address] [id number] Chase Regalado Self - patient is the insured Medical (General) History Medical History History ICD Code Hypertension Sleep Apnea Kidney Donor Systemic Lupus Sjogren's Syndrome Esophageal Reflux Colon Polyps Low Back Pain, s/p MRI 2018 and pain man agement evaluation Sciatica Lumbar Disc Disease Tobacco Abuse BPH Tuna Fish Allergy Surgical History Surgery Date(Month/Year) Kidney Donation 2004 Colonoscopy 12/2010 EGD 06/2017 Colonoscopy 10/2017 Bladder Stent- Dr. Jacobsen, [facility] 07/14/2018 Spinal Fusion [id number] 12/2020 Lumbar fusion L4-L5 08/2022 Hospitalization History Reason Date(Month/Year)
--- OUTSIDE RECORDS SUMMARY | 2025-04-27 13:56 | XMS_ITS | Clinical Summary ---
Author Organization [facility] Address [address] [place] [address] Phone Care Team Providers Care Obstetrics Nurse Practitioner Name Role Phone Anton Betts MD Primary Care Provider + [phone] Allergies No known active allergies Medications Nebivolol (BYSTOLIC) 10 mg Tab Take 20 mg by mouth daily. Active SALSALATE ORAL Take by mouth. Active pilocarpine (SALAGEN) 5 mg tablet Take by mouth 3 times daily. Active hydroxychloroqui ne (PLAQUENIL) 200 mg tablet Take by mouth daily. Active esomeprazole (NEXIUM) 40 mg capsule Take by mouth daily. Active aspirin 81 mg tablet Take 81 mg by mouth daily. Active Garlic 1,000 mg Cap Take by mouth. Active [place]-3 Fatty Acids-Vitamin E (FISH OIL) 1,000 mg Cap Take by mouth. Active diphenhydrAMINE (BENADRYL) 25 mg capsule Take by mouth every 6 hours as needed for Itching. Active Medical History Medical History Date Comments Lupus Sjoegren syndrome Hypertension GERD (gastroesophageal reflux disease) Social History Tobacco Use Types Packs/Day Years Used Date Smoking Tobacco: Every Day Cigarettes Alcohol Use Standard Drinks/Week Comments No 0 (1 standard drink = 0.6 oz pur e alcohol) Sex and Gender Information Value Date Recorded Sex Assigned at Not on file Legal Sex Male 5:38 AM EDT Gender Identity Not on file Sexual Orientation Not on file Last Filed Vital Signs Vital Sign Reading Time Taken Comments Blood Pressure 147/108 02/16/2011 4:32 PM EDT Pulse 70 02/16/2011 3:38 PM EDT Temperature 36.4 C (97.6 F) 02/16/2011 1:11 PM EDT Respiratory Rate 16 02/16/2011 3:38 PM EDT Oxygen Saturation 97% 02/16/2011 3:38 PM EDT Inhaled Oxygen Concentration - - Weight 99.8 kg (220 lb) 02/16/2011 1:11 PM EDT Height 182.9 cm (6') 02/16/2011 1:11 PM EDT Body Mass Index 29.84 02/16/2011 1:11 PM EDT Plan of Treatment Health Maintenance Due Date Last Done Comments Wellness Exam Medicare 1963 Hepatitis C Screening 1979 DTaP/TDaP/Td (1 - Tdap) 02/23/1996 02/22/1996 Cologuard 2006 Colon Cancer Screening 2006 Colonoscopy 2006 FIT 2006 Sigmoidoscopy 2006 Virtual Colonography 2006 Pneumococcal Vaccine 50+ (1 of 1 - PCV) 2011 Zoster (1 of 2) 2011 COVID-19 Vaccine (3 - 2024- season) 2025 05/07/2021, 04/25/2021 Influenza Vaccine (#1) 2025 4, 04/20/2022, 04/24/2021, Additional history exists Hepatitis B Vaccine Aged Out No longe r eligible based on patient's age to complete this topic Meningococcal B Vaccine Aged Out No l onger eligible based on patient's age to complete this topic Insurance 196[address] GARCIA [place] [id number] [facility] MEDICARE PPO MR [employer] MEDICARE PPO MR [place] [phone] Care Teams Obstetrics Nurse Practitioner Relationship Specialty Start Date End Date Anton Betts MD [address] [place] [address] PCP - General 02/16/11
--- OUTSIDE RECORDS SUMMARY | 2025-04-27 13:56 | XMS_ITS | Clinical Summary ---
Author Organization [facility] Address [address] [place] [address] Care Team Providers Care Allergist Immunologist Name Role Phone Anton Betts MD Primary Care Provider + [phone] Allergies Active Allergy Reactions Criticality Noted Date Comments Fish Oil Palpitations Low 06/14/2018 Varenicline Palpitations Low 06/10/2018 Medications albuterol HFA 108 (90 Base) MCG/ACT inhaler INHALE TWO PUFFS BY MOUTH FOUR TIMES DAILY NEEDED --SHAKE WELL BEFORE USE-- 0 Active gabapentin (NEURONTIN) 800 MG tablet TAKE ONE TABLET BY MOUTH THREE TIMES DAILY MAY CAUSE DROWSINESS 0 Active diphenhydrAMINE (BANOPHEN) 25 mg capsule Take by mouth every 6 (six) hours as needed #remove. Active nebivolol (BYSTOLIC) 10 MG tablet Take 10 mg by mouth Twice a Day . Active sildenafil (VIAGRA) 50 MG tablet TAKE ONE TABLET BY MOUTH EVERY DAY NEEDED 0 Active betamethasone, augmented, (DIPROLENE) 0.05 % cream apply a SMALL AMOUNT TO affected AREA TWICE DAILY FOR 2 WEEKS, STOP FOR 2 WEEKS. REPEAT NEEDED 0 Active esomeprazole (NEXIUM) 40 MG capsule Take 40 mg by mouth 2 (two) times daily. Active CBD OIL Take by mouth. Activ e triamcinolone (KENALOG) 0.1 % cream APPLY TOPICALLY TO THE AFFECTED AREA(S) TWICE DAILY -- FOR EXTERNAL USE ONLY-- 1 Active NON FORMULARY Terrazyme-2 tabs daily . Active cyclobenzaprine (FLEXERIL) 10 MG tablet Take 1 tablet by mouth 3 (three) times daily as needed for Muscle spasms. 30 tablet 1 Active Active Problems Problem Noted Date Diagnosed Date Tobacco use disorder 12/26/2020 Paresthesias 04/08/2020 Myelopathy 04/08/2020 Myelopathy of thoracic region 04/08/2020 Weakness of both legs 04/08/2020 BPH (benign prostatic hyperplasia) COPD (chronic obstructive pulmonary disease) History of pulmonary embolism Overview (12/26/2020): AGE 23 Foot drop Sleep apnea Hypertension GERD (gastroesophageal reflux disease) Social History Tobacco Use Types Packs/Day Years Used Date Smoking Tobacco: Every Day Cigarettes Smokeless Tobacco: Never Tobacco Cessation:Ready to Q uit: Yes; Counseling Given: Yes Alcohol Use Standard Drinks/Week Comments Yes 6 (1 standard drink = 0.6 oz pur e alcohol) DAILY Sex and Gender Information Value Date Recorded Sex Assigned at Not on file Legal Sex Male 2:09 PM EDT Gender Identity Not on file Sexual Orientation Not on file Last Filed Vital Signs Vital Sign Reading Time Taken Comments Blood Pressure 128/80 02/10/2021 10:22 AM EDT Pulse 78 02/10/2021 10:22 AM EDT Temperature 36.7 C (98 F) 12/27/2020 7:34 AM EDT Respiratory Rate 18 12/27/2020 7:34 AM EDT Oxygen Saturation 98% 02/10/2021 10:22 AM EDT Inhaled Oxygen Concentration - - Weight 112.5 kg (248 lb) 02/10/2021 1:32 PM EDT Height 182.9 cm (6') 02/10/2021 1:32 PM EDT Body Mass Index 33.63 02/10/2021 1:32 PM EDT Plan of Treatment Health Maintenance Due Date Last Done Comments CT Colonography 1961 Colonoscopy 1961 Colorectal Cancer Screening 1961 FIT-DNA 1961 FIT 1961 FOBT 1961 Hepatitis C Screening 1961 Sigmoidoscopy 1961 Tdap/Td Vaccine >11 yo (1 - Tdap) 02/23/1996 02/22/1996 Pneumococcal Vaccines >50 yo (1 of 1 - PCV) 2011 Shingles (Shingrix) (1 of 2) 2011 Annual SDOH Screening 07/26/2024 Influenza Vaccine (#1) 2025 9, 05/16/2018, 05/07/2016 RSV 50+ and (1 - 1-dose 75+ series) 2036 Haemophilus Influenzae Type B (Hib) Vaccine Aged Out No longer eligible b ased on patient's age to complete this topic Hepatitis A (HepA) Vaccine Aged Out N o longer eligible based on patient's age to complete this topic Hepatitis B (HepB) Vaccine Aged Out N o longer eligible based on patient's age to complete this topic Meningococcal ACWY Aged Out No longer eligible based on patient's age to complete this topic Polio (IPV) Aged Out No longer eligi ble based on patient's age to complete this topic Rotavirus (RV) Vaccine Aged Out No lo nger eligible based on patient's age to complete this topic Medical Devices Implanted Type Area Phy Therapist Device Identifier Shelf Expiration Date Model / Serial / Lot Kit Sealant Surgiflo Mtrx 2994 - [id number] Implanted:Qty: 1 on 12/25/2020 by Lan Rossi MD at [facility] OTHER - IMPLANTS - OTHER N/A: Spine Thoracic J 06/24/2022 2994 / / [id number] Jatin Solera 4.75x60 [id number] - [id number] Implanted:Qty: 2 on 12/25/2020 by Lan Rossi MD at [facility] Rods [employer]ANE[employer] [id number] / / Set Screw Solera 4.75 [id number] - [id number] Implanted:Qty: 6 on 12/25/2020 by Lan Rossi MD at [facility] Screws [employer] [id number] / / Screw Laura 5.0x50 [id number] - [id number] Implanted:Qty: 2 on 12/25/2020 by Lan Rossi MD at [facility] [employer] [id number] / / Screw Fredi 5.5x50 [id number] - [id number] Implanted:Qty: 4 on 12/25/2020 by Lan Rossi MD at [facility] [employer] [id number] / / Insurance HU[employer]NA MEDICARE REPLACEMENT Advance Directives Documents on File Type Date Recorded 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
--- OUTSIDE RECORDS SUMMARY | 2025-04-27 13:56 | XMS_ITS | Clinical Summary ---
Author Organization [facility] Address [address] [place] [address] Care Team Providers Care Government Teacher Name Role Phone Anton Betts MD Primary Care Provider + [phone] Allergies Active Allergy Reactions Criticality Noted Date Comments Fish Oil Palpitations Low 06/14/2018 Varenicline Palpitations Low 06/10/2018 Social History Tobacco Use Types Packs/Day Years Used Date Smoking Tobacco: Never Assessed Sex and Gender Information Value Date Recorded Sex Assigned at Not on file Legal Sex Male 8:25 PM EDT Gender Identity Not on file Sexual Orientation Not on file Last Filed Vital Signs Vital Sign Reading Time Taken Comments Blood Pressure 154/99 07/12/2023 7:17 PM EST Pulse 88 07/12/2023 7:17 PM EST Temperature 36.4 C (97.5 F) 07/12/2023 7:17 PM EST Respiratory Rate 18 07/12/2023 7:17 PM EST Oxygen Saturation 95% 07/12/2023 7:17 PM EST Inhaled Oxygen Concentration - - Weight - - Height - - Body Mass Index - - Plan of Treatment Not on file Insurance [facility] MEDICARE Care Teams Government Teacher Relationship Specialty Start Date End Date Anton Betts MD [facility] [address] [place] [address] PCP - General 12/06/20
== END 2025-04-27 23:59 | disposition home or self-care (01) ==
LOC: RT 13:53
PROVIDERS: PCP Family Medicine; Visit Provider Family Medicine
DX: I07.1 Rheumatic tricuspid insufficiency (principal); I11.9 Hypertensive heart disease without heart failure; E78.5 Hyperlipidemia, unspecified; F17.200 Nicotine dependence, unspecified, uncomplicated
CPT/HCPCS: 93306